=== PATIENT | female | born 1990 | race Caucasian/White ===

== ENCOUNTER 2016-05-29 10:43 | Emergency (ER) | payer SELFPAY ==
[2016-05-29] MEDS ORDERED: IBUPROFEN 800 MG TABLET PO ONE (10:50)
--- NOTE | 2016-05-29 10:50 | ER Document Report ---
ED Medical Screen (RME) - General Chief Complaint: Abscess Stated Complaint: ABSCESS Time seen by provider: 10:49 Mode of Arrival: Ambulatory Information source: Patient Notes: 26-year-old female presents to ED for abscess in left axilla. Denies fever or drainage to the site. No fevers noted. Last menstrual period 05/18/2016 I have greeted and performed a rapid initial assessment of this patient. A comprehensive ED assessment and evaluation of the patient, analysis of test results and completion of medical decision making process will be conducted by an additional ED providers. TRAVEL OUTSIDE OF THE [place] IN LAST 30 DAYS: No - Related Data Allergies/Adverse Reactions: tramadol [Tramadol] Adverse Reaction (Intermediate, Verified 05/29/16 10:50) Nausea Past Medical History Renal/ Medical History: Reports: Hx Kidney Stones, Hx Ovarian Cysts Psychiatric Medical History: Reports: Hx Bipolar Disorder, Hx Depression Past Surgical History: Reports: Hx Adenoidectomy, Hx Myringotomy, Hx Oral Surgery - plates in jaw, Hx Tonsillectomy - Immunizations Immunizations up to date: Yes Hx Diphtheria, Pertussis, Tetanus Vaccination: Yes - within 5 yrs Physical Exam - Vital signs Vitals: Temp Pulse Resp BP Pulse Ox 98.5 F 80 16 111/74 98 05/29/16 10:49 05/29/16 10:49 05/29/16 10:49 05/29/16 10:49 05/29/16 10:49 Course - Vital Signs Vital signs: Temp Pulse Resp BP Pulse Ox 98.2 F 80 16 113/68 98 05/29/16 12:51 05/29/16 12:51 05/29/16 12:51 05/29/16 12:51 05/29/16 12:57 Doctor's Discharge - Discharge Clinical Impression: Folliculitis Condition: Stable Disposition: HOME, SELF-CARE Instructions: Bactroban Ointment ([facility]), Folliculitis ([facility]) Additional Instructions: *You have been treated for folliculitis *Apply bactroban twice a day *Warm packs to the area *Monitor the site for signs of increasing infection such as increasing pain, redness, swelling, warmth *[facility] for [facility]heck *Return to ED for signs of increasing infection, worsening condition, changes, needs
[2016-05-29] MEDS ORDERED: MUPIROCIN CALCIUM 2% CREAM 15 GM TP ONE (12:46)
--- NOTE | 2016-05-29 12:47 | ER Document Report ---
HPI - HPI Patient complains to provider of: lump under left arm Onset: Other - 3 days Onset/Duration: Persistent Quality of pain: Achy Severity: Moderate Pain Level: 3 Context: Patient presents to the emergency department with complaints of lump under her left arm for the past 3 days. Denies history of MRSA. Patient also gives report of feeling short of breath when she goes up stairs but reports this been going on for over a month and only wrote it down because her fianc wanted her checked out for everything. She reports she is not here because of shortness of breath and does not want to be evaluated for this. She would like to have the lump under her arm evaluated. Patient denies fever vomiting diarrhea. Patient does shave under her arms. Associated Symptoms: None Exacerbated by: Denies Relieved by: Denies Similar symptoms previously: No Recently seen / treated by doctor: No - REPRODUCTIVE Reproductive: DENIES: : - DERM Skin Color: Normal Past Medical History - General Information source: Patient - Social History Smoking Status: Current Every Day Smoker Cigarette use (# per day): Yes - 1/2 ppd Chew tobacco use (# tins/day): No Frequency of alcohol use: Occasional Drug Abuse: None Occupation: none Family History: None, Reviewed & Not Pertinent Patient has suicidal ideation: No Patient has homicidal ideation: No Renal/ Medical History: Reports: Hx Kidney Stones, Hx Ovarian Cysts. Denies: Hx Peritoneal Dialysis Psychiatric Medical History: Reports: Hx Bipolar Disorder, Hx Depression Past Surgical History: Reports: Hx Adenoidectomy, Hx Myringotomy, Hx Oral Surgery - plates in jaw, Hx Tonsillectomy - Immunizations Immunizations up to date: Yes Hx Diphtheria, Pertussis, Tetanus Vaccination: Yes - within 5 yrs Vertical Provider Document - CONSTITUTIONAL Agree With Documented VS: Yes Exam Limitations: No Limitations General Appearance: WD/WN, No Apparent Distress - nontoxic looking - INFECTION CONTROL TRAVEL OUTSIDE OF THE [place] IN LAST 30 DAYS: No - HEENT HEENT: Atraumatic, Normocephalic - NECK Neck: Normal Inspection, Supple. negative: Lymphadenopathy-Left, Lymphadenopathy-Right - RESPIRATORY Respiratory: Breath Sounds Normal, No Respiratory Distress, Chest Non-Tender. negative: Rhonchi, Wheezing O2 Sat by Pulse Oximetry: 98 - CARDIOVASCULAR Cardiovascular: Regular Rate, Regular Rhythm - GI/ABDOMEN Gastrointestinal: Abdomen Soft, Abdomen Non-Tender - MUSCULOSKELETAL/EXTREMETIES Musculoskeletal/Extremeties: MEHRDAD, FROM, Tender - c/o tender left axillae, small lump noted under her left axilla approximately 1 cm around no pustule no induration no fluctuance- - NEURO Level of Consciousness: Awake, Alert, Appropriate Motor/Sensory: No Motor Deficit - DERM Integumentary: Warm, Dry Course - Re-evaluation Re-evalutation: 05/29/16 12:56 patient was instructed on care of area, bactroban and warm packs. Also instructed to return to emergency department for signs or symptoms of abscess or increasing erythema. She verbalized understanding. - Vital Signs Vital signs: Temp Pulse Resp BP Pulse Ox 98.5 F 80 16 111/74 98 05/29/16 10:49 05/29/16 10:49 05/29/16 10:49 05/29/16 10:49 05/29/16 10:49 Discharge - Discharge Clinical Impression: Folliculitis Condition: Stable Disposition: HOME, SELF-CARE Instructions: Bactroban Ointment ([facility]), Folliculitis ([facility]) Additional Instructions: *You have been treated for folliculitis *Apply bactroban twice a day *Warm packs to the area *Monitor the site for signs of increasing infection such as increasing pain, redness, swelling, warmth *[facility] for recheck *Return to ED for signs of increasing infection, worsening condition, changes, needs
[2016-05-29 13:53] VITALS: BP 113/68
== END 2016-05-29 13:00 | disposition home or self-care (01) ==
LOC: ER 10:43
DX: L73.9 Follicular disorder, unspecified (principal); F17.210 Nicotine dependence, cigarettes, uncomplicated
CPT/HCPCS: 99283; J3490

== ENCOUNTER 2016-07-11 18:44 | Emergency (ER) | payer SELFPAY ==
--- NOTE | 2016-07-11 19:12 | ER Document Report ---
ED Medical Screen (RME) - General Stated Complaint: RIGHT HAND SWELLING Notes: 26 yo female c/o right hand swelling x 3 days. 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 pt has hx/o boxer's fracture in same hane 1 yr ago. denies new trauma. admits to heavy lifting. also c/o rash to right forearm. no itch, slight stinging. rash started after being scratched by thorns TRAVEL OUTSIDE OF THE [place] IN LAST 30 DAYS: No - Related Data Allergies/Adverse Reactions: tramadol [Tramadol] Adverse Reaction (Intermediate, Verified 05/29/16 10:50) Nausea Past Medical History Renal/ Medical History: Reports: Hx Kidney Stones, Hx Ovarian Cysts. Denies: Hx Peritoneal Dialysis Psychiatric Medical History: Reports: Hx Bipolar Disorder, Hx Depression Past Surgical History: Reports: Hx Adenoidectomy, Hx Myringotomy, Hx Oral Surgery - plates in jaw, Hx Tonsillectomy - Immunizations Immunizations up to date: Yes Hx Diphtheria, Pertussis, Tetanus Vaccination: Yes - within 5 yrs
--- NOTE | 2016-07-11 23:46 | ER Document Report ---
ED General - General Time seen by provider: 23:40 Mode of Arrival: Ambulatory Information source: Patient TRAVEL OUTSIDE OF THE [place] IN LAST 30 DAYS: No - HPI Onset: Other - see HPI - General Chief Complaint: Hand Pain Stated Complaint: RIGHT HAND SWELLING Notes: Recent injury to her right hand. Patient states that the only thing she has done differently was that she has been working more. 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 Patient states she does not have insurance or primary care physician. Patient states her pain has been occurring for the past week. Patient states that she has some swelling to her right hand. Patient is allergic to tramadol. (SHERLY MUNGUIA) - Related Data Allergies/Adverse Reactions: tramadol [Tramadol] Adverse Reaction (Intermediate, Verified 07/11/16 19:12) Nausea Past Medical History - Social History Smoking Status: Current Every Day Smoker Chew tobacco use (# tins/day): No Frequency of alcohol use: None Drug Abuse: None Family History: None Patient has suicidal ideation: No Patient has homicidal ideation: No Renal/ Medical History: Reports: Hx Kidney Stones, Hx Ovarian Cysts Psychiatric Medical History: Reports: Hx Bipolar Disorder, Hx Depression Past Surgical History: Reports: Hx Adenoidectomy, Hx Myringotomy, Hx Oral Surgery - plates in jaw, Hx Tonsillectomy - Immunizations Immunizations up to date: Yes Hx Diphtheria, Pertussis, Tetanus Vaccination: Yes - within 5 yrs Review of Systems - Review of Systems Constitutional: No symptoms reported EENT: No symptoms reported Cardiovascular: No symptoms reported Respiratory: No symptoms reported Gastrointestinal: No symptoms reported Genitourinary: No symptoms reported Female Genitourinary: No symptoms reported Musculoskeletal: See HPI Skin: No symptoms reported Hematologic/Lymphatic: No symptoms reported Neurological/Psychological: No symptoms reported -: Yes All other systems reviewed and negative Physical Exam - Vital signs Interpretation: Normal - General General appearance: Appears well, Alert In distress: Mild - HEENT Head: Normocephalic, Atraumatic Eyes: Normal Pupils: PERRL Mucous membranes: Moist - Respiratory Respiratory status: No respiratory distress Chest status: Nontender Breath sounds: Normal Chest palpation: Normal - Cardiovascular Rhythm: Regular Heart sounds: Normal auscultation Murmur: No - Abdominal Inspection: Normal Distension: No distension Bowel sounds: Normal Tenderness: Nontender Organomegaly: No organomegaly - Back Back: Normal, Nontender - Extremities General upper extremity: Normal inspection, Normal ROM, Normal strength General lower extremity: Normal inspection, Normal ROM, Normal strength - Neurological Neuro grossly intact: Yes Cognition: Normal Orientation: AAOx4 [place] Coma Scale Eye Opening: Spontaneous [place] Coma Scale Verbal: Oriented [place] Coma Scale Motor: Obeys Commands [place] Coma Scale Total: 15 Speech: Normal - Psychological Associated symptoms: Normal affect, Normal mood - Skin Skin Temperature: Warm Skin Moisture: Dry Discharge - Discharge Clinical Impression: Right hand pain, narcotic seeking behavior Condition: Stable Disposition: HOME, SELF-CARE Additional Instructions: hand pain Your injury is a sprain. A sprain results from stretching or tearing of the ligaments, usually from a twisting injury. The ligaments will require time and protection in order to heal properly. Many sprains are quite disabling and should be taken seriously. The usual initial treatment of sprains is cold packs, elevation, and rest of the injured area. Your physician has assessed the seriousness of your ligament injury, and has outlined a treatment plan. Understand that this treatment may change, depending on how you progress. If a re-examination was recommended, it is important that you follow up as instructed. Call the doctor any time if there is severe pain, numbness, or loss of function in the injured area. Forms: Return to Work Referrals: [facility] [Provider Group] - Follow up in 3-5 days (Call for an appointment to be seen in 3-4 days) Scribe Documentation - Scribe Written by Scribe:: Sherly Munguia 07/11/16 00:15 acting as scribe for :: Jossue
== END 2016-07-11 23:55 | disposition home or self-care (01) ==
LOC: ER 18:44
DX: M79.641 Pain in right hand (principal); Z76.5 Malingerer [conscious simulation]; F17.200 Nicotine dependence, unspecified, uncomplicated
CPT/HCPCS: 99283

== ENCOUNTER 2016-11-26 19:20 | Emergency (ER) | payer SELFPAY ==
[2016-11-26 19:52] VITALS: BP 114/75
--- NOTE | 2016-11-26 21:08 | RADIOLOGY REPORT (SQ) ---
EXAM DESCRIPTION: HAND RIGHT 3 VIEWS COMPLETED DATE/TIME: 11/26/2016 8:03 pm REASON FOR STUDY: Pain s/p injury COMPARISON: None. EXAM PARAMETERS: NUMBER OF VIEWS: Three views. TECHNIQUE: AP, lateral and oblique radiographic images acquired of the right hand. LIMITATIONS: None. FINDINGS: MINERALIZATION: Normal. BONES: No acute fracture or dislocation. No worrisome bone lesions. Chronic deformity of the 5th me tacarpal. JOINTS: No effusions. SOFT TISSUES: No soft tissue swelling. No foreign body. OTHER: No other significant finding. IMPRESSION: No acute fracture. TECHNICAL DOCUMENTATION: JOB ID: [id number] [employer]- All Rights Reserved
--- NOTE | 2016-11-26 21:22 | ER Document Report ---
HPI - HPI Patient complains to provider of: Right hand pain Pain Level: 2 Context: Patient is a 26-year-old female that comes emergency department for chief complaint of right hand pain and swelling with bruising over the top of her hand. She admits that she became angry and she punched a wall, this happened 3 days ago, she states swelling was actually much worse and has started to significantly improve but she is worried she might have broken her hands. She admits that she previously punched something and broke her hand in the past. She denies any other injuries or areas of pain. - REPRODUCTIVE Reproductive: DENIES: : - DERM Skin Color: Normal, [place] Past Medical History - General Information source: Patient - Social History Smoking Status: Current Every Day Smoker Chew tobacco use (# tins/day): No Frequency of alcohol use: None Drug Abuse: Marijuana Lives with: Family Family History: None Renal/ Medical History: Reports: Hx Kidney Stones, Hx Ovarian Cysts. Denies: Hx Peritoneal Dialysis Psychiatric Medical History: Reports: Hx Bipolar Disorder, Hx Depression Surgical Hx: Negative Past Surgical History: Reports: Hx Adenoidectomy, Hx Myringotomy, Hx Oral Surgery - plates in jaw, Hx Tonsillectomy - Immunizations Immunizations up to date: Yes Hx Diphtheria, Pertussis, Tetanus Vaccination: Yes - within 5 yrs Vertical Provider Document - CONSTITUTIONAL General Appearance: WD/WN, No Apparent Distress - INFECTION CONTROL TRAVEL OUTSIDE OF THE [place] IN LAST 30 DAYS: No - HEENT HEENT: Atraumatic, Normocephalic - NECK Neck: Normal Inspection - RESPIRATORY Respiratory: Breath Sounds Normal, No Respiratory Distress O2 Sat by Pulse Oximetry: 100 - CARDIOVASCULAR Cardiovascular: Regular Rate, Regular Rhythm - GI/ABDOMEN Gastrointestinal: Abdomen Soft, Abdomen Non-Tender - MUSCULOSKELETAL/EXTREMETIES Musculoskeletal/Extremeties: MAEW, FROM, Tender - There is ecchymosis over the third and fourth MCP joints of the dorsal right hand, normal range of motion of the hand, normal capillary refill and sensation, normal wrist range of motion, no snuffbox tenderness, normal upper extremity exam otherwise - NEURO Motor/Sensory: No Motor Deficit, No Sensory Deficit - DERM Integumentary: Warm, Dry, No Rash Course - Re-evaluation Re-evalutation: X-ray shows old fracture but no new abnormality. Examination does not show any concerning abnormalities including no snuffbox tenderness. Consistent with soft tissue injury. I did discuss her anger issues, she denies SI or HI, she states that she realizes that she needs a better outlook and she actually plans on getting a punching bag to work through times when she is very angry. Boyfriend at bedside is in agreement. - Vital Signs Vital signs: Temp Pulse Resp BP Pulse Ox 98.7 F 90 16 114/75 100 11/26/16 19:35 11/26/16 19:35 11/26/16 19:35 11/26/16 19:35 11/26/16 19:35 Discharge - Discharge Clinical Impression: Swelling of right hand Injury of right hand Qualifiers: Encounter type: initial encounter Qualified Code(s): S69.91XA - Unspecified injury of right wrist, hand and finger(s), initial encounter Condition: Stable Disposition: HOME, SELF-CARE Additional Instructions: X-ray shows old healed fracture but no new concerning findings. Ice the hand 4 times daily for 15 minutes, take the anti-inflammatory, rest the hand. Follow up with Primary Care. Return to the ED for any concerning symptoms. Prescriptions: Naproxen 500 mg PO BID #20 tablet Forms: Return to Work
== END 2016-11-26 21:26 | disposition home or self-care (01) ==
LOC: ER 19:20
DX: S69.91XA Unspecified injury of right wrist, hand and finger(s), initial encounter (principal); F17.210 Nicotine dependence, cigarettes, uncomplicated; F31.9 Bipolar disorder, unspecified; X83.8XXA Intentional self-harm by other specified means, initial encounter; Y92.9 Unspecified place or not applicable; Z87.442 Personal history of urinary calculi
CPT/HCPCS: 99283

== ENCOUNTER 2017-01-11 20:18 | Emergency (ER) | payer SELFPAY ==
[2017-01-11] MEDS ORDERED: DEXAMETHASONE SOD PHOS INJ 10 MG/1 ML VIAL IM ONE (22:15)
[2017-01-11] MEDS ORDERED: ALBUTEROL SULFATE HFA (90 MCG/PUFF) 8 GM MDI (1 MDI/ER DISP) IH PRN (22:15)
--- NOTE | 2017-01-11 22:20 | ER Document Report ---
ED General - General Chief Complaint: Ear Pain Stated Complaint: RIGHT EAR PAIN Time Seen by Provider: 01/11/17 22:01 Notes: Patient is a 26-year-old female presents with complaint of ear pain. She says she has pain in her right ear. She says she also has some nasal congestion. She had ear tubes when she was younger. She denies any fevers. No vomiting. No cough. She has no other complaints at this time. TRAVEL OUTSIDE OF THE [place] IN LAST 30 DAYS: No - Related Data Allergies/Adverse Reactions: tramadol [Tramadol] Adverse Reaction (Intermediate, Verified 01/11/17 20:26) Nausea Home Medications: Current Home Medications No Home Medications 01/11/17 [History] Past Medical History - Social History Smoking Status: Unknown if Ever Smoked Frequency of alcohol use: None Drug Abuse: None Family History: None Renal/ Medical History: Reports: Hx Kidney Stones, Hx Ovarian Cysts. Denies: Hx Peritoneal Dialysis Psychiatric Medical History: Reports: Hx Bipolar Disorder, Hx Depression Past Surgical History: Reports: Hx Adenoidectomy, Hx Myringotomy, Hx Oral Surgery - plates in jaw, Hx Tonsillectomy - Immunizations Immunizations up to date: Yes Hx Diphtheria, Pertussis, Tetanus Vaccination: Yes - within 5 yrs Review of Systems - Review of Systems Notes: My Normal Review Basic REVIEW OF SYSTEMS: CONSTITUTIONAL : Denies fever, chills, or sweats. Denies recent illness. EENT: Ear pain. Is a congestion CARDIOVASCULAR: Denies chest pain. RESPIRATORY: Denies cough, cold, or chest congestion. Denies shortness of breath, difficulty breathing, or wheezing. GASTROINTESTINAL: Denies abdominal pain. Denies nausea, vomiting, or diarrhea. Denies constipation. Last BM: MUSCULOSKELETAL: Denies neck or back pain or joint pain or swelling. SKIN: Denies rash or skin lesions. NEUROLOGICAL: Denies altered mental status or loss of consciousness. Denies headache. Denies weakness or paralysis or loss of use of either side. Denies problems with gait or speech. Denies sensory or motor loss. ALL OTHER SYSTEMS REVIEWED AND NEGATIVE. Physical Exam - Vital signs Vitals: Temp Pulse Resp BP Pulse Ox 97.9 F 66 16 111/69 98 01/11/17 20:29 01/11/17 20:29 01/11/17 20:29 01/11/17 20:29 01/11/17 20:29 - Notes Notes: General Appearance: Well nourished, alert, cooperative, no acute distress, no obvious discomfort. Appearing. Vitals: reviewed, See vital signs table. Head: no swelling or tenderness to the head Eyes: PERRL, EOMI, Conjuctiva clear Mouth: No decreasd moisture Throat: No tonsillar inflammation, No airway obstruction, No lymphadenopathy Ears: Normal-appearing tympanic membrane the left. Patient does have a lot of cerumen impaction right ear. I can partially visualize the tympanic membrane on the right there is normal-appearing. There is no redness or swelling or erythema of either ear canal. Neck: Supple, no neck swelling. Lungs: No wheezing, No rales, No rhonci, No accessory muscle use, good air exchange bilaterally. Heart: Normal rate, Regular rythm, No murmur, no rub Skin: warm, dry, appropriate color, no rash Neuro: speech clear, oriented x 3, normal affect, responds appropriately to questions. Course - Re-evaluation Re-evalutation: 01/12/17 07:15 Patient will be discharged home. If the patient most likely has upper respiratory infection is causing some pressure behind her right ear. I will give her a dose of Decadron. Encouraged to take [id number] nasal decongestants. Encouraged her return to ER if she has fevers, worsening pain, any facial swelling, or if she feels unwell. Patient agrees with plan will be discharged home. Dictation of this chart was performed using voice recognition software; therefore, there may be some unintended grammatical errors. - Vital Signs Vital signs: Temp Pulse Resp BP Pulse Ox 98.3 F 64 18 110/72 99 01/11/17 22:25 01/11/17 22:25 01/11/17 22:25 01/11/17 22:25 01/11/17 22:25 Discharge - Discharge Clinical Impression: Sinus congestion Ear pain Qualifiers: Laterality: right Qualified Code(s): H92.01 - Otalgia, right ear Dyspnea Qualifiers: Dyspnea type: unspecified Qualified Code(s): R06.00 - Dyspnea, unspecified Condition: Good Disposition: HOME, SELF-CARE Additional Instructions: Please take over the counter psuedophed or phenylephrine to help with your congestion. Please return to the ER immediately if you have difficulty breathing, fevers, vomiting, or feel unwell. Please follow-up with primary care doctor in 3-4 days for reevaluation. Please continue the good work with quitting smoking. Forms: Return to Work
[2017-01-11 22:33] VITALS: BP 110/72
== END 2017-01-11 22:25 | disposition home or self-care (01) ==
LOC: ER 20:18
DX: R09.81 Nasal congestion (principal); H61.21 Impacted cerumen, right ear; H92.01 Otalgia, right ear; R06.00 Dyspnea, unspecified
CPT/HCPCS: 99282; 96372; J1100; J3490

== ENCOUNTER 2017-01-15 19:26 | Emergency (ER) | payer SELFPAY ==
[2017-01-15] MEDS ORDERED: DOCUSATE SODIUM 100 MG CAPSULE RT_EAR ONE (20:21)
--- NOTE | 2017-01-15 20:28 | ER Document Report ---
ED ENT - General Chief Complaint: Ear Pain Stated Complaint: EAR ACHE Time Seen by Provider: 01/15/17 19:54 Mode of Arrival: Ambulatory Information source: Patient Notes: 26-year-old presents to ED for complaint of right ear pain and feeling clogged. She states she was here couple days ago and they sent her home on decongestants which did not help her pain and feelings in her ear. TRAVEL OUTSIDE OF THE [place] IN LAST 30 DAYS: No - HPI Patient complains to provider of: Ear problem Onset: Last week Onset/Duration: Persistent Quality of pain: Achy, Sharp, Other Severity: Moderate Pain Level: 3 Context: Recent Illness Location of pain: Ears, Nose Associated symptoms: Ear pain, Runny nose, Sinus drainage Similar symptoms previously: Yes Recently seen / treated by doctor: Yes - Related Data Allergies/Adverse Reactions: tramadol [Tramadol] Adverse Reaction (Intermediate, Verified 01/15/17 19:46) Nausea Past Medical History - General Information source: Patient - Social History Smoking Status: Current Every Day Smoker Cigarette use (# per day): Yes - Half a pack a day Chew tobacco use (# tins/day): No Smoking Education Provided: Yes - Less than 2 minute Frequency of alcohol use: Occasional Drug Abuse: Marijuana Occupation: No work Lives with: Spouse/Significant other Family History: Arthritis, CAD, COPD, CVA, Hyperlipidemia, Hypertension, Malignancy, Thyroid Disfunction Patient has suicidal ideation: No Patient has homicidal ideation: No - Past Medical History Cardiac Medical History: Reports: None Pulmonary Medical History: Reports: None EENT Medical History: Reports: None Neurological Medical History: Reports: None Endocrine Medical History: Reports: None Renal/ Medical History: Reports: Hx Kidney Stones, Hx Ovarian Cysts Malignancy Medical History: Reports: None GI Medical History: Reports: None Musculoskeltal Medical History: Reports None Skin Medical History: Reports None Psychiatric Medical History: Reports: Hx Bipolar Disorder, Hx Depression Traumatic Medical History: Reports: None Infectious Medical History: Reports: None Past Surgical History: Reports: Hx Adenoidectomy, Hx Myringotomy, Hx Oral Surgery - plates in jaw, Hx Tonsillectomy - Immunizations Immunizations up to date: Yes Hx Diphtheria, Pertussis, Tetanus Vaccination: Yes - within 5 yrs Review of Systems - Review of Systems Constitutional: Recent illness EENT: Ear pain, Nose discharge, Sinus pressure, Sinus discharge Cardiovascular: No symptoms reported Respiratory: No symptoms reported Gastrointestinal: No symptoms reported Genitourinary: No symptoms reported Female Genitourinary: No symptoms reported Musculoskeletal: No symptoms reported Skin: No symptoms reported Hematologic/Lymphatic: No symptoms reported Neurological/Psychological: No symptoms reported -: Yes All other systems reviewed and negative Physical Exam - Vital signs Vitals: Temp Pulse Resp BP Pulse Ox 98.8 F 67 18 124/90 H 98 01/15/17 19:48 01/15/17 19:48 01/15/17 19:48 01/15/17 19:48 01/15/17 19:48 Interpretation: Normal - General General appearance: Appears well, Alert - HEENT Head: Normocephalic, Atraumatic Eyes: Normal Pupils: PERRL Ears: Normal External canal: Cerumen impaction Tympanic membrane: Normal Sinus: Normal Nasal: Purulent discharge, Swelling Mouth/Lips: Normal Mucous membranes: Normal Pharynx: Normal Neck: Normal - Respiratory Respiratory status: No respiratory distress Chest status: Nontender Breath sounds: Normal Chest palpation: Normal - Cardiovascular Rhythm: Regular Heart sounds: Normal auscultation Murmur: No - Abdominal Inspection: Normal Distension: No distension Bowel sounds: Normal Tenderness: Nontender Organomegaly: No organomegaly - Back Back: Normal, Nontender - Extremities General upper extremity: Normal inspection, Nontender, Normal color, Normal ROM , Normal temperature General lower extremity: Normal inspection, Nontender, Normal color, Normal ROM , Normal temperature, Normal weight bearing. No: Agus's sign - Neurological Neuro grossly intact: Yes Cognition: Normal Orientation: AAOx4 Amar[place] Coma Scale Eye Opening: Spontaneous [place] Coma Scale Verbal: Oriented [place] Coma Scale Motor: Obeys Commands [place] Coma Scale Total: 15 Speech: Normal Motor strength normal: LUE, RUE, LLE, RLE Sensory: Normal - Psychological Associated symptoms: Normal affect, Normal mood - Skin Skin Temperature: Warm Skin Moisture: Dry Skin Color: Normal Course - Vital Signs Vital signs: Temp Pulse Resp BP Pulse Ox 98.8 F 67 18 124/90 H 98 01/15/17 19:48 01/15/17 19:48 01/15/17 19:48 01/15/17 19:48 01/15/17 19:48 Discharge - Discharge Clinical Impression: Ear pain Qualifiers: Laterality: right Qualified Code(s): H92.01 - Otalgia, right ear Cerumen impaction Qualifiers: Laterality: right Qualified Code(s): H61.21 - Impacted cerumen, right ear URI (upper respiratory infection) Qualifiers: URI type: unspecified URI Qualified Code(s): J06.9 - Acute upper respiratory infection, unspecified Condition: Stable Disposition: HOME, SELF-CARE Instructions: Family Physicians / Practices Additional Instructions: UPPER RESPIRATORY ILLNESS: You have a viral infection of the respiratory passages -- a "cold." This common infection causes nasal congestion, drainage, and often sore throat and cough. It is highly contagious. The disease usually lasts about 10 to 14 days. There is no "cure" for the viral infection -- it must run its course. If there is a complication, such as bacterial infection in the nose, sinuses, middle ear, or bronchial tubes, antibiotics may be required. The antibiotics won't affect the virus. Drink plenty of fluids. A humidifier may help. An expectorant medication or decongestant may make you more comfortable. Use acetaminophen or ibuprofen for fever or aches. See the doctor if fever persists over two days, if there is any significant worsening of your symptoms, or if you simply fail to improve as expected. Cerumen Impaction The physician found a severe buildup of earwax in your ear canal, called a cerumen impaction. A large plug of wax can cause earache, decreased hearing, or itching. It can even lead to infection of the outer ear. An impaction of earwax can be removed by the physician using special instruments, or can be irrigated out using a stream of water (often a little of both is required). Some less severe impactions are removed using ear drops that dissolve wax. In the future, don't get soap in your ear canal. Soap doesn't remove wax - - it simply hardens it in place. Don't use cotton swabs. These just push the wax into large clumps, where it doesn't flow out normally. Dust and smoke also contribute to wax buildup. Earwax softening drops are available without prescription, and can be used periodically. Contact the doctor if you develop decreased hearing, earache, drainage from the ear, or severe headache. DECONGESTANT MEDICATION: A decongestant medicine has been suggested. Often this medicine is combined in the same tablet with an antihistamine or expectorant. This type of medicine is helpful in treating a bad cold or sinus condition, as well as in treatment of the nasal congestion of hay fever. It is not of much benefit for lung infections. Decongestant medicines are related to stimulants. They can cause an increase in blood pressure and heart rate. Persons with heart disease and high blood pressure should not take decongestants without discussing this with the physician. If you develop palpitations, chest pain, headache, or tremors, stop the medicine and consult your physician. COUGH-SUPPRESSANT & EXPECTORANT MEDICATION: You are to use a cough medication as needed for relief of symptoms. This medicine is a combination of an expectorant (to make the mucous thinner and more easily "coughed up") and a cough suppressant (to reduce the frequency of coughing). The cough-suppressant medicine is related to narcotics. You may experience mild nausea and sleepiness. Some patients who are very sensitive to narcotics may have stomach pain from this medicine. Taking the medicine with food reduces these side effects. Do not drive or work with machinery until you know how this medicine affects you. The expectorant should have no side effects. Iodine-containing expectorants (such as organidin) should not be taken by persons with active thyroid disease unless approved by your doctor. Call the doctor if you develop shortness of breath, hives, rash, itching, lightheadedness, or severe nausea and vomiting. USE OF ACETAMINOPHEN (Tylenol): Acetaminophen may be taken for pain relief or fever control. It's much safer than aspirin, offering a wider range of "safe" dosages. It is safe during . Some brand names are Tylenol, Panadol, Datril, Anacin 3, Tempra, and Liquiprin. Acetaminophen can be repeated every four hours. The following are maximum recommended dosages: >89 pounds or adults 650 mg to 900 mg Acetaminophen can be repeated every four hours. Maximum dose not to exceed 4000 mg a day. SMOKING: If you smoke, you should stop smoking. The tar and chemicals in cigarette smoke are harmful. Smoking has been shown to cause: emphysema chronic bronchitis lung cancer mouth and throat cancer stomach and pancreas cancer premature aging defects In addition, smoking increases ear and lung infections in children of smokers. FOLLOW-UP CARE: If you have been referred to a physician for follow-up care, call the physician s office for an appointment as you were instructed or within the next two days. If you experience worsening or a significant change in your symptoms, notify the physician immediately or return to the Emergency Department at any time for re-evaluation. Forms: Elevated Blood Pressure, Smoking Cessation Education, Return to Work
[2017-01-15] MEDS ORDERED: IBUPROFEN 600 MG TABLET PO ONE (20:59)
[2017-01-15 21:04] VITALS: BP 113/82
== END 2017-01-15 21:06 | disposition home or self-care (01) ==
LOC: ER 19:26
DX: H61.21 Impacted cerumen, right ear (principal); J06.9 Acute upper respiratory infection, unspecified; H92.01 Otalgia, right ear; J34.89 Other specified disorders of nose and nasal sinuses; F17.210 Nicotine dependence, cigarettes, uncomplicated; Z71.6 Tobacco abuse counseling
CPT/HCPCS: 99283

== ENCOUNTER 2017-05-27 19:25 | Emergency (ER) | payer SELFPAY ==
--- NOTE | 2017-05-27 20:56 | RADIOLOGY REPORT (SQ) ---
EXAM DESCRIPTION: CHEST PA/LAT COMPLETED DATE/TIME: 05/27/2017 8:42 pm REASON FOR STUDY: cp COMPARISON: 01/31/2010. EXAM PARAMETERS: NUMBER OF VIEWS: two views TECHNIQUE: Digital Frontal and Lateral radiographic views of the chest acquired. RADIATION DOSE: NA LIMITATIONS: none FINDINGS: LUNGS AND PLEURA: No opacities, masses or pneumothorax. No pleural effusion. MEDIASTINUM AND HILAR STRUCTURES: No masses or contour abnormalities. HEART AND VASCULAR STRUCTURES: Heart normal size. No evidence for failure. BONES: No acute findings. HARDWARE: None in the chest. OTHER: No other significant finding. IMPRESSION: NO SIGNIFICANT RADIOGRAPHIC FINDING IN THE CHEST. TECHNICAL DOCUMENTATION: JOB ID: [id number] [employer]- All Rights Reserved
[2017-05-27 21:46] VITALS: BP 119/83
--- NOTE | 2017-05-27 21:48 | ER Document Report ---
HPI - HPI Patient complains to provider of: cough, congestion Pain Level: 2 Context: Patient is a 27-year-old female comes emergency department for chief complaint of cough, congestion, occasional sweats at night, difficulty sleeping because of cough, postnasal drainage, intermittent wheezing. She now has an inhaler, she has been urgent care twice, she finished a course of azithromycin, she finished a second course of azithromycin and is now finishing a course of prednisone, she has improved but symptoms continue to persist. She does smoke but has been forced to cut back. LMP current. No daily medications or past medical history reported otherwise. - REPRODUCTIVE LMP: now Reproductive: DENIES: : Past Medical History - General Information source: Patient - Social History Smoking Status: Current Every Day Smoker Smoking Education Provided: Yes - <3 min Frequency of alcohol use: None Drug Abuse: None Lives with: Family Family History: Arthritis, CAD, COPD, CVA, Hyperlipidemia, Hypertension, Malignancy, Thyroid Disfunction Renal/ Medical History: Reports: Hx Kidney Stones, Hx Ovarian Cysts. Denies: Hx Peritoneal Dialysis Psychiatric Medical History: Reports: Hx Bipolar Disorder, Hx Depression Past Surgical History: Reports: Hx Adenoidectomy, Hx Myringotomy, Hx Oral Surgery - plates in jaw, Hx Tonsillectomy - Immunizations Immunizations up to date: Yes Hx Diphtheria, Pertussis, Tetanus Vaccination: Yes - within 5 yrs Vertical Provider Document - CONSTITUTIONAL General Appearance: WD/WN, No Apparent Distress - INFECTION CONTROL TRAVEL OUTSIDE OF THE [place] IN LAST 30 DAYS: No - HEENT HEENT: Atraumatic, Normocephalic. negative: Normal ENT Exam - mild nasal congestion, mild pharyngeal erythema, otherwise normal ENT - NECK Neck: Normal Inspection - RESPIRATORY Respiratory: Breath Sounds Normal, No Respiratory Distress, Other - non productive cough O2 Sat by Pulse Oximetry: 97 - CARDIOVASCULAR Cardiovascular: Regular Rate, Regular Rhythm - GI/ABDOMEN Gastrointestinal: Abdomen Soft, Abdomen Non-Tender - BACK Back: Normal Inspection - NEURO Level of Consciousness: Awake, Alert, Appropriate - DERM Integumentary: Warm, Dry, No Rash Course - Re-evaluation Re-evalutation: Evaluation tonight with no acute findings. Clear lungs, no hypoxia. Chest x- ray unremarkable. Patient with intermittent cough, congestion, otherwise she is well-appearing. Discussed smoking cessation. Will provide symptom management for patient as she completes her final symptoms of her suspected bronchitis, discussed follow-up, return precautions, patient states understanding and agreement. - Vital Signs Vital signs: Temp Pulse Resp BP Pulse Ox 98.1 F 70 20 115/68 97 05/27/17 19:31 05/27/17 19:31 05/27/17 19:31 05/27/17 19:31 05/27/17 19:31 Discharge - Discharge Clinical Impression: Upper respiratory infection Qualifiers: URI type: unspecified URI Qualified Code(s): J06.9 - Acute upper respiratory infection, unspecified Condition: Stable Disposition: HOME, SELF-CARE Additional Instructions: Your chest x-ray does not show any concerning abnormalities. Your symptoms and examination are consistent with lingering symptoms from bronchitis. Finish prednisone, take [id number] generic Mucinex, antihistamines can help. Take Tessalon during the day if needed for cough, take syrup if needed at night for cough (only if needed). Follow-up with primary care. Stop smoking. Return for any concerning or worsening symptoms including difficulty breathing, fever of 100.4 greater, or any other concerning symptoms. Prescriptions: Hydrocodone Bit/Homatropine [Hycodan Syrup 5-1.5 mg/5 ml Ud Cup] 5 ml PO Q4HP PRN #120 ml PRN Reason: Benzonatate [Tessalon Perle 100 mg Capsule] 100 mg PO Q8HP PRN #40 cap PRN Reason: Forms: Smoking Cessation Education
--- NOTE | 2017-05-27 23:36 | EKG REPORT ---
SEVERITY:- BORDERLINE ECG - SINUS RHYTHM PROBABLE LEFT ATRIAL ABNORMALITY INFERIOR Q WAVES, PROBABLY NORMAL VARIATION : Confirmed by: Jose Herzog 27-May-2017 23:35:41
== END 2017-05-27 21:54 | disposition home or self-care (01) ==
LOC: ER 19:25
DX: J06.9 Acute upper respiratory infection, unspecified (principal); F17.200 Nicotine dependence, unspecified, uncomplicated; Z87.442 Personal history of urinary calculi
CPT/HCPCS: 71046; 93005; 93010; 99285

== ENCOUNTER 2017-07-04 15:20 | Emergency (ER) | payer SELFPAY ==
--- NOTE | 2017-07-04 15:42 | ER Document Report ---
ED General - General Chief Complaint: Vaginal Pain Stated Complaint: LOWER ABDOMINAL PAIN Time Seen by Provider: 07/04/17 15:40 Mode of Arrival: Ambulatory Information source: Patient Notes: Patient is a 27 year old female with PMHx including endometriosis and "pelvic congestion" that presents with c/o lower right pelvic pain that has been intermittent over the past 2 months. She states that occasionally there will be a "bulge" that goes away on its own. She endorses associated dysparunia and after menstrual cycles. Denies concern for or STDs. Denies fever, chills, n/v/d, abdominal pain, dysuria, hematuria, abnormal vaginal bleeding, vaginal discharge. She has not taken any medications for this. Endorses history of heavy menstrual cycles but otherwise normal in nature. TRAVEL OUTSIDE OF THE [place] IN LAST 30 DAYS: No - Related Data Allergies/Adverse Reactions: tramadol [Tramadol] Adverse Reaction (Intermediate, Verified 07/04/17 15:22) Nausea Past Medical History - General Information source: Patient - Social History Smoking Status: Unknown if Ever Smoked Family History: Arthritis, CAD, COPD, CVA, Hyperlipidemia, Hypertension, Malignancy, Thyroid Disfunction Renal/ Medical History: Reports: Hx Kidney Stones, Hx Ovarian Cysts. Denies: Hx Peritoneal Dialysis Psychiatric Medical History: Reports: Hx Bipolar Disorder, Hx Depression Past Surgical History: Reports: Hx Adenoidectomy, Hx Myringotomy, Hx Oral Surgery - plates in jaw, Hx Tonsillectomy - Immunizations Immunizations up to date: Yes Hx Diphtheria, Pertussis, Tetanus Vaccination: Yes - within 5 yrs Review of Systems - Review of Systems Constitutional: See HPI EENT: No symptoms reported Cardiovascular: No symptoms reported Respiratory: No symptoms reported Gastrointestinal: See HPI Genitourinary: See HPI Female Genitourinary: See HPI Musculoskeletal: No symptoms reported Skin: No symptoms reported Hematologic/Lymphatic: No symptoms reported Neurological/Psychological: No symptoms reported Physical Exam - Vital signs Vitals: Temp Pulse Resp BP Pulse Ox 98.6 F 77 16 119/72 99 07/04/17 15:24 07/04/17 15:24 07/04/17 15:24 07/04/17 15:24 07/04/17 15:24 - Notes Notes: PHYSICAL EXAM: CONSTITUTIONAL: Alert and oriented, well-appearing and in no acute distress. HENT: Normocephalic, atraumatic. Oropharynx clear without erythema, tonsilar exudate or malocclusion. Trachea midline. Uvula midline. Moist mucous membranes. EYES: Pupils equal round and reactive to light, EOM intact. Sclera anicteric, conjunctiva are normal. No entrapment. NECK: supple without lymphadenopathy. No midline tenderness or paraspinous muscle spasms. No step-offs or deformities. ROM intact. HEART: Regular rate and rhythm without murmurs. LUNGS: CTAB and equal. No wheezes, rales or rhonchi. GI: Normactive bowel sounds. Abdomen is soft, nontender, non-distended. No organomegaly. no CVAT. No rebound or guarding. Negative McBurney's point tenderness, negative Ramírez's sign. TTP in right inguinal canal without bulge or mass. SHOE FITTER: patient deferred EXTREMITIES: no bony tenderness, erythema, edema, ecchymosis or deformity. Normal range of motion, no pitting edema. No cyanosis. Cap Refill <3 seconds. NEURO: Cranial nerves grossly intact. Normal sensory/motor exams. PSYCH: Normal mood, normal affect. SKIN: Warm and dry. Normal turgor. No rashes or lesions noted. Course - Re-evaluation Re-evalutation: 07/04/17 15:42 Patient seen and examined. Hx of endometriosis, "pelvic congestion." Exam reveals TTP in inguinal canal without bulge, mass, or evidence of cellulitis/ abscess. DDx includes lymphadenopathy vs inguinal hernia (non-strangulated). Patient defers pelvic exam. Will obtain UA, US. 07/04/17 16:30 Reviewed urinalysis - 1+ WBC, trace bacteria, no hematuria, no RBC, neg nitrites , neg leuk est. Awaiting transvaginal US. 07/04/17 17:00 Patient notified nursing staff she did not want to wait for ultrasound. I discussed with her that she could experience worsening pain, worsening of condition, etc. She reports again she doesn't want to stay and she would follow- up with her OBGYN. I advised that if it is also inguinal hernia, she should follow-up with surgeon, also gave strict return precautions that if strangulated , she should return immediately for evaluation as this is a surgical emergency. She voiced agreement with plan. At this time, will discharge with return precautions and follow-up recommendations. Verbal discharge instructions given at the bedside and opportunity for questions given. Medication warnings reviewed. Patient is in agreement with this plan and has verbalized understanding of return precautions and the need for primary care follow-up in the next 24-72 hours. - Vital Signs Vital signs: Temp Pulse Resp BP Pulse Ox 98.6 F 77 16 119/72 99 07/04/17 15:24 07/04/17 15:24 07/04/17 15:24 07/04/17 15:24 07/04/17 15:24 Discharge - Discharge Clinical Impression: Pelvic pain, Lymphadenopathy, Inguinal hernia of right side without obstruction or gangrene Condition: Stable Disposition: HOME, SELF-CARE Instructions: Hernia ([facility]), Lymphadenopathy ([facility]) Additional Instructions: We discussed that your urine today was normal. The "bulge" you are feeling could be just swollen lymph nodes or a possible inguinal hernia. We discussed strict return precautions concerning if this were to get stuck out and not reduce on its own. If this happens, return immediately. However, if it does not, but continues to bother you, you can follow-up with a surgeon. Take medications as directed. FOLLOW-UP CARE: If you have been referred to a physician for follow-up care, call the physician s office for an appointment as you were instructed or within the next two days. If you experience worsening or a significant change in your symptoms, notify the physician immediately or return to the Emergency Department at any time for re-evaluation. Prescriptions: Naproxen [Naprosyn 250 mg Tablet] 500 mg PO BID #20 tablet
[2017-07-04 16:22] LABS: AMORPHOUS SEDIMENT,URINE TRACE /HPF; APPEARANCE,URINE CLOUDY; BILIRUBIN,URINE NEGATIVE (NEGATIVE); COLOR,URINE YELLOW; GLUCOSE, URINE NEGATIVE (NEGATIVE); KETONES,URINE NEGATIVE (NEGATIVE); LEUKOCYTE ESTERASE,URINE NEGATIVE (NEGATIVE); NITRITE,URINE NEGATIVE (NEGATIVE); PROTEIN,URINE NEGATIVE (NEGATIVE); URINE SPECIFIC GRAVITY 1.013; UROBILINOGEN,URINE NEGATIVE mg/dL (<2.0)
[2017-07-04 17:31] VITALS: BP 113/72
== END 2017-07-04 17:31 | disposition home or self-care (01) ==
LOC: ER 15:20
DX: K40.90 Unilateral inguinal hernia, without obstruction or gangrene, not specified as recurrent (principal); R59.1 Generalized enlarged lymph nodes; R10.2 Pelvic and perineal pain; R10.30 Lower abdominal pain, unspecified
CPT/HCPCS: 81001; 81025; 99284

== ENCOUNTER 2017-09-01 18:53 | Emergency (ER) | payer SELFPAY ==
[2017-09-01 19:05] VITALS: BP 115/79
== END 2017-09-01 20:10 | disposition left against medical advice (07) ==
LOC: ER 18:53
DX: Z53.21 Procedure and treatment not carried out due to patient leaving prior to being seen by health care provider (principal); M25.562 Pain in left knee

== ENCOUNTER 2017-09-09 16:19 | Emergency (ER) | payer SELFPAY ==
[2017-09-09 16:54] VITALS: BP 115/77
[2017-09-09] MEDS ORDERED: DIPH/PERTUSS(ACELL)/TETANUS VAC/PF 0.5 ML SYR (>=10YO) IM ONE (17:27)
--- NOTE | 2017-09-09 17:32 | ER Document Report ---
HPI - HPI Pain Level: 2 Notes: Patient is a 27-year-old female with no significant past medical history who presents to the ED complaining of a small laceration to her right lateral index finger when she was at work today by a utility blade. Patient is unsure of her last tetanus. Patient states that it has not been heavily bleeding. She still able to move her finger without active difficulties. She has no associated numbness or tingling. No other concerns or complaints at this time. Denies any headache, fever, URI, sore throat, chest pain, palpitations, syncope, cough , shortness of breath, wheeze, dyspnea, abdominal pain, nausea/vomiting/diarrhea , urinary retention, dysuria, hematuria, muscle paralysis/weakness, or rash. - ROS Systems Reviewed and Negative: Yes All other systems reviewed and negative - REPRODUCTIVE Reproductive: DENIES: : Past Medical History - Social History Smoking Status: Unknown if Ever Smoked Family History: Arthritis, CAD, COPD, CVA, Hyperlipidemia, Hypertension, Malignancy, Thyroid Disfunction Renal/ Medical History: Reports: Hx Kidney Stones, Hx Ovarian Cysts. Denies: Hx Peritoneal Dialysis Psychiatric Medical History: Reports: Hx Bipolar Disorder, Hx Depression Past Surgical History: Reports: Hx Adenoidectomy, Hx Myringotomy, Hx Oral Surgery - plates in jaw, Hx Tonsillectomy - Immunizations Immunizations up to date: Yes Hx Diphtheria, Pertussis, Tetanus Vaccination: Yes - within 5 yrs Vertical Provider Document - CONSTITUTIONAL Agree With Documented VS: Yes Notes: PHYSICAL EXAMINATION: GENERAL: Well-appearing, well-nourished and in no acute distress. LUNGS: Breath sounds clear to auscultation bilaterally and equal. No wheezes rales or rhonchi. HEART: Regular rate and rhythm without murmurs, rubs, gallops. Musculoskeletal: Rt index finger: FROM to passive/active. Strength 5+/5. N/V intact distal. Extremities: No cyanosis, clubbing, or edema b/l. Peripheral pulses 2+. Capillary refill less than 3 seconds. NEUROLOGICAL: Cranial nerves grossly intact. Normal speech, normal gait. Normal sensory, motor exams PSYCH: Normal mood, normal affect. SKIN: Rt index finger: There is a very superficial flap lac to the lateral index. The lac does not penetrate through all the skin layers. - INFECTION CONTROL TRAVEL OUTSIDE OF THE [place] IN LAST 30 DAYS: No Course - Re-evaluation Re-evalutation: 09/09/17 17:30 Patient is an afebrile, well-hydrated, 27-year-old female who presents to the ED with a laceration of the right index finger. Vitals are acceptable. PE is otherwise unremarkable for any neurovascular compromise, obvious tendon/ ligament rupture, obvious fracture/dislocation, infection. No labs or imaging warranted at this time based on H&P. Minimal wound debridement was performed and wound dressing was placed after thorough irrigation and cleansing. Tetanus was updated today. Conservative measures otherwise for symptoms. I will send her home with a prophylactic prescription for Keflex. Recheck with your PCM in 3-5 days. Return to the ED with any worsening/concerning symptoms otherwise as reviewed discharge. Patient is in agreement. - Vital Signs Vital signs: Temp Pulse Resp BP Pulse Ox 98.5 F 71 16 115/77 99 09/09/17 16:52 09/09/17 16:52 09/09/17 16:52 09/09/17 16:52 09/09/17 16:52 Discharge - Discharge Clinical Impression: Laceration of index finger Qualifiers: Encounter type: initial encounter Damage to nail status: without damage Foreign body presence: without foreign body Laterality: right Qualified Code(s) : S61.210A - Laceration without foreign body of right index finger without damage to nail, initial encounter Condition: Stable Disposition: HOME, SELF-CARE Instructions: Prophylactic Antibiotic ([facility]), Antibiotic Ointment Protection ( [facility]), Soap Cleansing ([facility]), Tetanus Immunization Given ([facility]) Additional Instructions: Keep the skin clean Wash with soap and water Tylenol/ibuprofen if needed Triple antibiotic ointment daily Keep finger wrapped until drainage stops Take medication as directed Monitor for any worsening symptoms Recheck with your PCM in 3-5 days Consider consult with orthopedics for ongoing/worsening symptoms Return to the ED with any worsening symptoms and/or development of fever, headache, chest pain, palpitations, syncope, shortness of breath, trouble breathing, abdominal pain, n/v/d, abscess, purulent discharge, red streaks, worsening swelling, or other worsening symptoms that are concerning to you. Prescriptions: Cephalexin Monohydrate [Keflex 500 mg Capsule] 500 mg PO BID #10 capsule Referrals: [facility] [Provider Group] - Follow up as needed
== END 2017-09-09 18:25 | disposition home or self-care (01) ==
LOC: ER 16:19
DX: S61.210A Laceration without foreign body of right index finger without damage to nail, initial encounter (principal); W26.0XXA Contact with knife, initial encounter; Y99.0 Civilian activity done for income or pay; Z23 Encounter for immunization
CPT/HCPCS: 90471; 90715; 99283

== ENCOUNTER 2017-11-11 06:55 | Emergency (ER) | payer SELFPAY ==
[2017-11-11] MEDS ORDERED: KETOROLAC TROMETHAMINE 60 MG/2 ML SDV IM ONE (07:41)
--- NOTE | 2017-11-11 07:43 | ER Document Report ---
ED GI/ - General Chief Complaint: Abdominal Pain Stated Complaint: BACK PAIN Time Seen by Provider: 11/11/17 07:27 Mode of Arrival: Ambulatory Information source: Patient Notes: Patient is a 27-year-old female who presents to the ER today for right flank pain that started 2 days ago and mild burning with urination. Patient admits to history of kidney stones. Patient admits to some nausea but no vomiting or diarrhea. Patient states that it does radiate somewhat into the right lower quadrant of the abdomen. She denies any fevers or chills. She denies any injury. TRAVEL OUTSIDE OF THE [place] IN LAST 30 DAYS: No - Related Data Allergies/Adverse Reactions: tramadol [Tramadol] Adverse Reaction (Intermediate, Verified 09/09/17 16:44) Nausea Past Medical History - General Information source: Patient - Social History Smoking Status: Unknown if Ever Smoked Family History: Arthritis, CAD, COPD, CVA, Hyperlipidemia, Hypertension, Malignancy, Thyroid Disfunction Patient has suicidal ideation: No Patient has homicidal ideation: No Renal/ Medical History: Reports: Hx Kidney Stones, Hx Ovarian Cysts. Denies: Hx Peritoneal Dialysis Psychiatric Medical History: Reports: Hx Bipolar Disorder, Hx Depression Past Surgical History: Reports: Hx Adenoidectomy, Hx Myringotomy, Hx Oral Surgery - plates in jaw, Hx Tonsillectomy - Immunizations Immunizations up to date: Yes Hx Diphtheria, Pertussis, Tetanus Vaccination: Yes - within 5 yrs Review of Systems - Review of Systems Constitutional: No symptoms reported EENT: No symptoms reported Cardiovascular: No symptoms reported Respiratory: No symptoms reported Gastrointestinal: See HPI Genitourinary: See HPI Female Genitourinary: No symptoms reported Musculoskeletal: No symptoms reported Skin: No symptoms reported Hematologic/Lymphatic: No symptoms reported Neurological/Psychological: No symptoms reported Physical Exam - Vital signs Vitals: Temp Pulse Resp BP Pulse Ox 98.4 F 78 16 115/76 99 11/11/17 06:58 11/11/17 06:58 11/11/17 06:58 11/11/17 06:58 11/11/17 06:58 - Notes Notes: PHYSICAL EXAMINATION: GENERAL: Uncomfortable, but in no acute distress. HEAD: Atraumatic, normocephalic. EYES: Pupils equal round and reactive to light, extraocular movements intact, sclera anicteric, conjunctiva are normal. NECK: Normal range of motion, supple without lymphadenopathy LUNGS: CTAB and equal. No wheezes rales or rhonchi. HEART: Regular rate and rhythm without murmurs ABDOMEN: Soft, mild suprapubic and right lower quadrant tenderness. No guarding , no rebound BACK: no vertebral tenderness, normal ROM GI/: Right CVA tenderness EXTREMITIES: Normal range of motion, no pitting edema. No cyanosis. NEUROLOGICAL: Cranial nerves grossly intact. Normal sensory/motor exams. PSYCH: Normal mood, normal affect. SKIN: Warm, Dry, normal turgor, no rashes or lesions noted Course - Re-evaluation Re-evalutation: 11/11/17 10:05 Moderate blood on urinalysis, evidence of bilateral nonobstructing renal calculi but no moving ureteral calculus on CT today. There are 6 white blood cells but also 6 squamous epithelial cells, no leukocytes or nitrites on urine. Patient will be treated as if she has just passed a kidney stone or is currently passing 1. Other lab work is unremarkable today. - Vital Signs Vital signs: Temp Pulse Resp BP Pulse Ox 98.4 F 78 16 115/76 99 11/11/17 06:58 11/11/17 06:58 11/11/17 06:58 11/11/17 06:58 11/11/17 06:58 - Laboratory Result Diagrams: 11/11/17 08:13 11/11/17 08:13 Laboratory results interpreted by me: 11/11/17 11/11/17 11/11/17 08:13 08:13 08:43 MCH 33.5 H Chloride 109 H Urine Blood MODERATE H Discharge - Discharge Clinical Impression: Kidney stone Condition: Stable Disposition: HOME, SELF-CARE Additional Instructions: Return immediately for any new or worsening symptoms. Follow up with primary care provider, call tomorrow to make followup appointment. Prescriptions: Ondansetron [Zofran Odt 4 mg Tablet] 1 - 2 tab PO Q4HP PRN #30 tab.rapdis PRN Reason: Ketorolac Tromethamine [Toradol 10 mg Tablet] 10 mg PO Q6HP PRN #20 tablet PRN Reason: Tamsulosin HCl [Flomax 0.4 mg Cap.sr] 0.4 mg PO DAILY #7 cap.sr.24h Referrals: SARAHI SIEGEL DO [[facility]] - Follow up as needed
[2017-11-11 08:20] LABS: ABSOLUTE BASOPHILS # (AUTO) 0.1 10^3/uL (0.0-0.2); ABSOLUTE MONOCYTES (AUTO) 0.8 10^3/uL (0.1-1.4); ABSOLUTE NEUT (AUTO) 5.8 10^3/uL (1.7-8.2); BASOPHILS % (AUTO) 0.7 % (0-2); EOSINOPHILS % (AUTO) 0.4 % (0-6); HEMATOCRIT 39.9 % (36.0-47.0); HEMOGLOBIN 13.8 g/dL (12.0-15.5); LYMPHOCYTES % (AUTO) 22.9 % (13-45); MEAN CORPUSCULAR HEMOGLOBIN 33.5 pg (27.0-33.4); MEAN CORPUSCULAR HGB CONC 34.5 g/dL (32.0-36.0); MEAN CORPUSCULAR VOLUME 97 fl (80-97); MONOCYTES % (AUTO) 9.5 % (3-13); PLATELET COUNT 243 10^3/uL (150-450); RED CELL DISTRIBUTION WIDTH 13.6 % (11.5-14.0); SEGMENTED NEUTROPHILS % (AUTO) 66.5 % (42-78); TOTAL CELLS COUNTED % (AUTO) 100 %; WHITE BLOOD COUNT 8.7 10^3/uL (4.0-10.5)
[2017-11-11 08:56] LABS: ALANINE AMINOTRANSFERASE 18 U/L (9-52); ALBUMIN 3.8 g/dL (3.5-5.0); ALKALINE PHOSPHATASE 54 U/L (38-126); ANION GAP 9 (5-19); ASPARTATE AMINO TRANSFERASE 20 U/L (14-36); BILIRUBIN,DIRECT 0.4 mg/dL (0.0-0.4); BLOOD UREA NITROGEN 15 mg/dL (7-20); CALCIUM 9.5 mg/dL (8.4-10.2); CARBON DIOXIDE 26 mmol/L (22-30); CHLORIDE 109 mmol/L (98-107); GLUCOSE 90 mg/dL (75-110); POTASSIUM 4.1 mmol/L (3.6-5.0); SODIUM 144.3 mmol/L (137-145); TOTAL PROTEIN 6.7 g/dL (6.3-8.2)
[2017-11-11 09:15] LABS: BILIRUBIN,TOTAL 0.5 mg/dL (0.2-1.3)
--- NOTE | 2017-11-11 09:35 | RADIOLOGY REPORT (SQ) ---
EXAM DESCRIPTION: CT LTD RENAL STONE PROTOCOL ON COMPLETED DATE/TIME: 11/11/2017 9:09 am REASON FOR STUDY: flank pain, left COMPARISON: None. TECHNIQUE: CT scan of the abdomen and pelvis performed without intravenous or oral contrast. Images reviewed with lung, soft tissue, and bone windows. Reconstructed coronal and sagittal MPR images revi ewed. All images stored on PACS. All CT scanners at this facility use dose modulation, iterative reconstruction, and/or weight based d osing when appropriate to reduce radiation dose to as low as reasonably achievable (ALARA). [facility]: Dose Right [facility]: CareDose [facility]: Dose Right [facility]: Teradose 4D [facility]: Smart Technologies RADIATION DOSE: CT Rad equipment meets quality standard of care and radiation dose reduction techniq ues were employed. CTDIvol: 6.4 mGy. DLP: 329 mGy-cm.mGy. LIMITATIONS: None. FINDINGS: LOWER CHEST: No significant findings. No nodules or infiltrates. NON-CONTRASTED LIVER, SPLEEN, ADRENALS: Evaluation limited by lack of IV contrast. No identified sign ificant masses. PANCREAS: No masses. No peripancreatic inflammatory changes. GALLBLADDER: No identified stones by CT criteria. No inflammatory changes to suggest cholecystitis. RIGHT KIDNEY AND URETER: Small non-obstructing calculi in the kidney with some of the largest measur ing 3 mm. Assessment limited by lack of IV contrast. LEFT KIDNEY AND URETER: Several non-obstructing calculi in the kidney with some of the largest measu ring up to 6 mm. Assessment limited by lack of IV contrast. AORTA AND RETROPERITONEUM: No aneurysm. No retroperitoneal masses or adenopathy. BOWEL AND PERITONEAL CAVITY: No obvious masses or inflammatory changes. No free fluid. APPENDIX: Normal. PELVIS, BLADDER, AND ABDOMINAL WALL: Several calcified phleboliths in the pelvis. An umbilical ring . Small hypoattenuated structures in the adnexal regions, may represent ovarian follicles. No free fluid. Bladder incompletely distended. BONES: No significant findings. OTHER: No other significant finding. IMPRESSION: 1 Bilateral non-obstructing renal calculi. COMMENT: Quality ID # [id number]: Final reports with documentation of one or more dose reduction techniques (e.g., Automated exposure control, adjustment of the mA and/or kV according to patient size, use of iterative reconstruction technique) TECHNICAL DOCUMENTATION: JOB ID: [id number]- All Rights Reserved Reading location - IP/workstation name: [email or web address]
[2017-11-11 09:42] LABS: APPEARANCE,URINE CLEAR; BILIRUBIN,URINE NEGATIVE (NEGATIVE); GLUCOSE, URINE NEGATIVE (NEGATIVE); KETONES,URINE NEGATIVE (NEGATIVE); LEUKOCYTE ESTERASE,URINE NEGATIVE (NEGATIVE); NITRITE,URINE NEGATIVE (NEGATIVE); PROTEIN,URINE NEGATIVE (NEGATIVE); URINE SPECIFIC GRAVITY 1.008; UROBILINOGEN,URINE NEGATIVE mg/dL (<2.0)
[2017-11-11 09:44] LABS: COLOR,URINE YELLOW
[2017-11-11 10:23] VITALS: BP 121/68
[2017-11-11] MEDS ORDERED: OXYCODONE-ACETAMINOPHEN 5-325 MG TABLET PO ONE (10:23)
== END 2017-11-11 10:29 | disposition home or self-care (01) ==
LOC: ER 06:55
DX: N20.0 Calculus of kidney (principal); R10.9 Unspecified abdominal pain; M54.9 Dorsalgia, unspecified; R30.9 Painful micturition, unspecified; R11.0 Nausea; R10.31 Right lower quadrant pain
CPT/HCPCS: 99284; 96372; 36415; 84703; 85025; 80053; 81001; 76380; J1885

== ENCOUNTER 2017-11-18 20:33 | Emergency (ER) | payer SELFPAY ==
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
[2017-11-18 22:39] VITALS: BP 121/80
== END 2017-11-18 22:40 | disposition home or self-care (01) ==
LOC: ER 20:33
DX: S60.221A Contusion of right hand, initial encounter (principal); W22.8XXA Striking against or struck by other objects, initial encounter; Z87.81 Personal history of (healed) traumatic fracture
CPT/HCPCS: 99283

== ENCOUNTER 2017-12-16 09:54 | Emergency (ER) | payer SELFPAY ==
[2017-12-16] MEDS ORDERED: LIDOCAINE 1% INJ-PF (10 MG/ML) 30 ML SDV INJ ONE (10:39)
[2017-12-16] MEDS ORDERED: HYDROMORPHONE HCL INJ/PF 2 MG/ML AMPULE IV ONE ×2 (10:55→11:52)
--- NOTE | 2017-12-16 11:04 | ER Document Report ---
ED General - General Stated Complaint: ARM LACERATION Time Seen by Provider: 12/16/17 10:33 Mode of Arrival: Ambulatory Information source: Patient, Relative, [facility] Records Notes: 27-year-old female with bipolar disorder, depression presents with multiple lacerations to her left forearm. Patient states that just prior to arrival she was carrying her dog when she tripped and fell falling forward with her arm outstretched. Patient fell with her arm outstretched and it went through a glass window. Patient denies any head injury, loss of consciousness. She denies any preceding dizziness, chest pain, shortness of breath. Her tetanus is up-to-date. She denies any current medication use. Last menstrual period was 1 month prior to arrival. TRAVEL OUTSIDE OF THE [place] IN LAST 30 DAYS: No - HPI Onset: Just prior to arrival Onset/Duration: Sudden Quality of pain: Achy, Throbbing Severity: Moderate Pain Level: 2 Associated symptoms: None Exacerbated by: Movement Relieved by: Remaining still Similar symptoms previously: No Recently seen / treated by doctor: No - Related Data Allergies/Adverse Reactions: tramadol [Tramadol] Adverse Reaction (Intermediate, Verified 09/09/17 16:44) Nausea Past Medical History - General Information source: Patient, Relative, [facility] Records Last Menstrual Period: 1 month - Social History Smoking Status: Current Every Day Smoker Cigarette use (# per day): Yes - 10 Smoking Education Provided: Yes - 4 minutes of smoking cessation provided Frequency of alcohol use: None Drug Abuse: None Lives with: Spouse/Significant other Family History: Arthritis, CAD, COPD, CVA, Hyperlipidemia, Hypertension, Malignancy, Thyroid Disfunction Patient has suicidal ideation: No Patient has homicidal ideation: No Renal/ Medical History: Reports: Hx Kidney Stones, Hx Ovarian Cysts. Denies: Hx Peritoneal Dialysis Psychiatric Medical History: Reports: Hx Bipolar Disorder, Hx Depression Past Surgical History: Reports: Hx Adenoidectomy, Hx Myringotomy, Hx Oral Surgery - plates in jaw, Hx Tonsillectomy - Immunizations Immunizations up to date: Yes Hx Diphtheria, Pertussis, Tetanus Vaccination: Yes - within 5 yrs Review of Systems - Review of Systems Notes: REVIEW OF SYSTEMS: CONSTITUTIONAL : Denies fever, chills, or sweats. Denies recent illness. Denies weight loss, recent hospitalizations. EENT: Denies visual changes, eye pain. Denies nasal or sinus congestion or discharge. Denies sore throat, oral lesions, difficulty swallowing. CARDIOVASCULAR: Denies chest pain. Denies palpitations. Denies lower extremity edema. RESPIRATORY: Denies cough, cold, or chest congestion. Denies shortness of breath, wheezing. GASTROINTESTINAL: Denies abdominal pain or distention. Denies nausea, vomiting , or diarrhea. Denies blood in vomitus, stools, or per rectum. Denies black, tarry stools. Denies constipation. GENITOURINARY: Denies difficulty urinating, painful urination, frequency, blood in urine, or vaginal discharge. MUSCULOSKELETAL: Denies back or neck pain or stiffness. Denies joint pain or swelling. SKIN: Denies rash. HEMATOLOGIC : Denies easy bruising or bleeding. LYMPHATIC: Denies swollen glands. NEUROLOGICAL: Denies confusion or altered mental status. Denies passing out or loss of consciousness. Denies dizziness or lightheadedness. Denies headache. Denies weakness or paralysis. Denies problems difficulty with ambulation, slurred speech. Denies sensory loss, numbness, or tingling. Denies seizures. PSYCHIATRIC: Denies anxiety or stress. Denies depression, suicidal ideation, or homicidal ideation. Denies visual or auditory hallucinations. Physical Exam - Vital signs Vitals: Temp Pulse Resp BP Pulse Ox 99 F 101 H 18 133/83 H 99 12/16/17 09:55 12/16/17 09:55 12/16/17 09:55 12/16/17 09:55 12/16/17 09:55 - Notes Notes: PHYSICAL EXAMINATION: GENERAL: Well-appearing, well-nourished and in no acute distress. GCS 15 HEAD: Atraumatic, normocephalic. EYES: Pupils equal round and reactive to light, extraocular movements intact, sclera anicteric, conjunctiva are normal. ENT: Nares patent, oropharynx clear without exudates. Moist mucous membranes. No hemanotympanum . No blood in nares. No dental fracture NECK: Normal range of motion, supple without lymphadenopathy. Trachea midline LUNGS: Breath sounds clear to auscultation bilaterally and equal. No wheezes rales or rhonchi. HEART: Tachycardic, regular rhythm without murmurs. Pulses intact all throughout. ABDOMEN: Soft, nontender, nondistended abdomen. No guarding, no rebound. No masses appreciated. Musculoskeletal: Normal range of motion, no pitting or edema. No cyanosis. Hip non tender, stable. NEUROLOGICAL: Cranial nerves grossly intact. Normal speech, normal gait. Normal sensory, motor, and reflex exams. PSYCH: Normal mood, normal affect. SKIN: Multiple lacerations to left forearm. 11 cm gaping laceration to the left forearm with adjacent 4 cm linear duration at distal forearm. 4 cm superficial laceration at proximal forearm. 3.5 cm laceration left elbow. Course - Re-evaluation Re-evalutation: 12/16/17 18:23 Forearm X-Ray 12/16/17 00:00 IMPRESSION: 1. NEGATIVE STUDY OF THE LEFT FOREARM. 12/16/17 18:24 27-year-old female with bipolar disorder, depression presents with multiple lacerations to her left forearm. Patient states that just prior to arrival she was carrying her dog when she tripped and fell falling forward with her arm outstretched. Patient fell with her arm outstretched and it went through a glass window. Patient denies any head injury, loss of consciousness. Upon arrival patient tachycardic otherwise vitals were stable. She has multiple complex lacerations to her arm which were repaired without complication. Wounds were cleaned, dressed and Vic wrap was placed. Patient provided the opportunity to ask questions, and express concerns. Discharge instructions discussed. Patient is agreeable with discharge home. Return indications explained and discussed with the patient who displays understanding. Patient encouraged to return to the emergency department immediately with any concerns. 12/18/17 06:34 - Vital Signs Vital signs: Temp Pulse Resp BP Pulse Ox 98.5 F 72 18 123/81 98 12/16/17 11:16 12/16/17 11:16 12/16/17 11:16 12/16/17 11:16 12/16/17 11:16 - Diagnostic Test Radiology reviewed: Image reviewed, Reports reviewed Procedures - Laceration/Wound Repair Left Volar Arm Time completed: 13:00 Wound length (cm): 11 - Multiple lacerations see physical exam Wound's Depth, Shape: Irregular, Flap, Contused tissue Laceration pre-procedure: Sterile PPE donned, Betadine prep applied, Sterile drapes applied, Shur-Clens applied Anesthetic type: 1% Lidocaine Volume Anesthetic (mLs): 20 Wound explored: Clean, No foreign body removed Wound Debrided: Moderate Wound Repaired With: Sutures Suture Size/Type: 4:0, Ethilon Number of Sutures: 25 Layer Closure?: Yes Deep Layer Suture Size/Type: Chromic Number Deep Layer Sutures: 8 Post-procedure wound care: Sterile dressing applied, Splint applied Post-procedure NV exam normal: Yes Complications: No Discharge - Discharge Clinical Impression: Laceration of left elbow Qualifiers: Encounter type: initial encounter Qualified Code(s): S51.012A - Laceration without foreign body of left elbow, initial encounter Laceration of left wrist Qualifiers: Encounter type: initial encounter Qualified Code(s): S61.512A - Laceration without foreign body of left wrist, initial encounter Laceration of left forearm Qualifiers: Encounter type: initial encounter Qualified Code(s): S51.812A - Laceration without foreign body of left forearm, initial encounter Condition: Good Disposition: HOME, SELF-CARE Instructions: Antibiotic Ointment Protection ([facility]), Laceration Care ([facility]), Soap Cleansing ([facility]) Additional Instructions: Her sutures will need to be removed in 10-12 days. Please keep the sutures clean and dry for 48 hours. Please return to the emergency department if he noticed increased pain or erythema around the laceration site. Follow up with your physician tomorrow for further care or return to the ED IMMEDIATELY if symptoms worsen or new concerns occur. If you cannot afford to follow up with your primary care physician a list of low cost clinics have been provided at the end of your discharge papers as well. Prescriptions: Hydrocodone/Acetaminophen [[place] 5-325 mg Tablet] 1 tab PO Q6H #10 tablet Ibuprofen [Motrin 600 Mg Tablet] 600 mg PO TID #15 tablet Forms: Smoking Cessation Education, Return to Work
--- NOTE | 2017-12-16 11:09 | RADIOLOGY REPORT (SQ) ---
EXAM DESCRIPTION: FOREARM LEFT COMPLETED DATE/TIME: 12/16/2017 10:53 am REASON FOR STUDY: laceration COMPARISON: 02/25/2012 NUMBER OF VIEWS: Two views. TECHNIQUE: Two radiographic images acquired of the left forearm, including elbow and wrist in at [address] one projection. LIMITATIONS: None. FINDINGS: MINERALIZATION: Normal. BONES: No acute fracture. No worrisome bone lesions. SOFT TISSUES: No obvious swelling or foreign body. OTHER: External bandage dressing over the proximal forearm, limits detail somewhat. IMPRESSION: 1. NEGATIVE STUDY OF THE LEFT FOREARM. TECHNICAL DOCUMENTATION: JOB ID: [id number] [employer]- All Rights Reserved Reading location - IP/workstation name: [email or web address]
[2017-12-16 13:38] VITALS: BP 123/81
== END 2017-12-16 15:25 | disposition home or self-care (01) ==
LOC: ER 09:54
DX: S51.812A Laceration without foreign body of left forearm, initial encounter (principal); S61.512A Laceration without foreign body of left wrist, initial encounter; S51.012A Laceration without foreign body of left elbow, initial encounter; W01.110A Fall on same level from slipping, tripping and stumbling with subsequent striking against sharp glass, initial encounter; F17.210 Nicotine dependence, cigarettes, uncomplicated; Z71.6 Tobacco abuse counseling; R00.0 Tachycardia, unspecified
CPT/HCPCS: 96376; 99406; 99283; 96374; 73090; 12034; J3490; J1170

== ENCOUNTER 2017-12-26 06:21 | Emergency (ER) | payer SELFPAY ==
[2017-12-26] MEDS ORDERED: DOCUSATE SODIUM 100 MG CAPSULE RT_EAR ONE (07:26)
--- NOTE | 2017-12-26 07:28 | ER Document Report ---
ED General - General Mode of Arrival: Ambulatory Information source: Patient TRAVEL OUTSIDE OF THE [place] IN LAST 30 DAYS: No - General Chief Complaint: Ear Pain Stated Complaint: STITCH REMOVAL AND LEFT EAR ACHE Time Seen by Provider: 12/26/17 07:19 Notes: Patient is a 27 year old female with bipolar disorder and depression presents to the emergency department asking for stitch removal from the left forearm and left ear drainage. Patient was seen in the emergency department 10 days ago after falling through a glass window and received multiple stitches in her left arm. She also complains of left ear drainage and pain. She states her ear has been draining for approximately 1.5 weeks although it stopped draining a few days ago. She describes the drainage as a clear liquid and states she had some intermittent pain. At bedside she states she feels some pressure in her left ear. She reports a history of multiple ear infections as a child and permanent damage to the left TM. (CANDACE BETTS) - Related Data Allergies/Adverse Reactions: tramadol [Tramadol] Adverse Reaction (Intermediate, Verified 12/26/17 06:41) Nausea Past Medical History - General Information source: Patient - Social History Smoking Status: Current Every Day Smoker Cigarette use (# per day): Yes Chew tobacco use (# tins/day): No Smoking Education Provided: No Family History: Arthritis, CAD, COPD, CVA, Hyperlipidemia, Hypertension, Malignancy, Thyroid Disfunction Renal/ Medical History: Reports: Hx Kidney Stones, Hx Ovarian Cysts Psychiatric Medical History: Reports: Hx Bipolar Disorder, Hx Depression Past Surgical History: Reports: Hx Adenoidectomy, Hx Myringotomy, Hx Oral Surgery - plates in jaw, Hx Tonsillectomy - Immunizations Immunizations up to date: Yes Hx Diphtheria, Pertussis, Tetanus Vaccination: Yes - within 5 yrs Review of Systems - Review of Systems Constitutional: No symptoms reported EENT: See HPI, Ear discharge Cardiovascular: No symptoms reported Respiratory: No symptoms reported Gastrointestinal: No symptoms reported Genitourinary: No symptoms reported Musculoskeletal: See HPI Skin: See HPI Hematologic/Lymphatic: No symptoms reported Neurological/Psychological: No symptoms reported -: Yes All other systems reviewed and negative Physical Exam - General General appearance: Appears well, Alert In distress: None - HEENT Head: Normocephalic Eyes: Normal Conjunctiva: Normal Extraocular movements intact: Yes Pupils: PERRL Tympanic membrane: Normal, Other - Right- Occluded with a copious amount of cerumen. Left- No signs of drainage, small amount of cerumen. Scarring consitent with patient's history. - Respiratory Respiratory status: No respiratory distress - Cardiovascular Rhythm: Regular Heart sounds: Normal auscultation Murmur: No Friction rub: No Gallop: None auscultated - Abdominal Inspection: Normal - Back Back: Normal - Extremities General upper extremity: Normal ROM General lower extremity: Normal ROM Forearm: Other - Well-healed stitches in the left forearm, no signs of infection. - Neurological Neuro grossly intact: Yes Cognition: Normal Orientation: AAOx4 Amarilis Coma Scale Eye Opening: Spontaneous Amarilis Coma Scale Verbal: Oriented Amarilis Coma Scale Motor: Obeys Commands Amarilis Coma Scale Total: 15 Speech: Normal - Psychological Associated symptoms: Normal affect, Normal mood - Skin Skin Temperature: Warm Skin Moisture: Dry - Vital signs Vitals: Temp Pulse Resp BP Pulse Ox 98.8 F 85 16 100/71 100 12/26/17 06:39 12/26/17 06:39 12/26/17 06:39 12/26/17 06:39 12/26/17 06:39 Course - Re-evaluation Re-evalutation: 12/26/17 10:25 The sutures were removed and the wounds look good. The right ear was soaked with Colace and then irrigated, did soften wax up some but mostly wax remains. I discussed with the patient the need to use over-the- counter earwax removal drops on a daily basis for possibly a week or more to soften the wax and get it to come out. She does relate a past history of having to have her ears "suctioned out" when she was younger due to wax buildup. The left TM was scarred but was not bulging. She states she has a pressure sensation in there with decreased hearing which is consistent with eustachian tube dysfunction. She advised to try agzh-vwx-hsrmdko medication such as Alison on a daily basis as it may take several days for her eustachian tube to open up and drain. Sudafed is another option, however it is a real ordeal to obtain now because you have to sign lasers at the pharmacy to buy it. Another option we discussed is trying Afrin nose spray, tilting her head back in squirting his stream and the nose is usually sniff to try to hit the opening of the eustachian tube with the Afrin nose spray. She is advised she may need to see an ear nose and throat doctor if these tricks do not help. (STELLA WALDROP) - Vital Signs Vital signs: Temp Pulse Resp BP Pulse Ox 98.1 F 70 16 117/75 98 12/26/17 10:45 12/26/17 10:45 12/26/17 10:45 12/26/17 10:45 12/26/17 10:45 Discharge - Discharge Clinical Impression: Visit for suture removal, Earache on left Excess wax in ear Qualifiers: Laterality: right Qualified Code(s): H61.21 - Impacted cerumen, right ear Eustachian tube dysfunction Qualifiers: Laterality: left Qualified Code(s): H69.82 - Other specified disorders of Eustachian tube, left ear Condition: Stable Disposition: HOME, SELF-CARE Additional Instructions: Try using vrly-jrj-uofiudk earwax removal drops in your right ear on a daily basis for the next few weeks to soften and remove the retained earwax. Try taking something such as Alison or Alison-D on a daily basis to help open up the eustachian tube to your left ear. Afrin nose spray may also help. Follow-up with your doctor or a local N nose and throat doctor if not improving. Scribe Attestation: 12/26/17 10:31 I personally performed the services described in the documentation, reviewed and edited the documentation which was dictated to the scribe in my presence, and it accurately records my words and actions. (STELLA WALDROP) Scribe Documentation - Scribe Written by Tessie:: Tessie Mac, 12/26/2017 07:43 acting as scribe for :: Luis Miguel
[2017-12-26] MEDS ORDERED: DOCUSATE SODIUM 100 MG CAPSULE ONE (08:33)
[2017-12-26 10:57] VITALS: BP 117/75
== END 2017-12-26 10:45 | disposition home or self-care (01) ==
LOC: ER 06:21
DX: H92.02 Otalgia, left ear (principal); H69.92 Unspecified Eustachian tube disorder, left ear; H61.21 Impacted cerumen, right ear; F17.210 Nicotine dependence, cigarettes, uncomplicated; Z48.02 Encounter for removal of sutures; Z86.19 Personal history of other infectious and parasitic diseases
CPT/HCPCS: 99283

== ENCOUNTER 2017-12-29 09:09 | Emergency (ER) | payer SELFPAY ==
[2017-12-29 09:15] VITALS: BP 111/68
--- NOTE | 2017-12-29 09:40 | ER Document Report ---
HPI - HPI Patient complains to provider of: Neck swelling Onset: Last week Pain Level: 1 Context: 27-year-old smoker with history of acne has 2 abscesses lateral right neck there over the carotid artery. The one closest to the base of her neck is more painful because she tries to squeeze it 2 days ago. No fever or chills. Associated Symptoms: None Exacerbated by: Other - Touching them Relieved by: Denies Similar symptoms previously: Yes Recently seen / treated by doctor: No - ROS ROS below otherwise negative: Yes Systems Reviewed and Negative: Yes All other systems reviewed and negative - REPRODUCTIVE LMP: Current Reproductive: DENIES: : Past Medical History - General Information source: Patient - Social History Smoking Status: Current Every Day Smoker Lives with: Family Family History: Arthritis, CAD, COPD, CVA, Hyperlipidemia, Hypertension, Malignancy, Thyroid Disfunction Renal/ Medical History: Reports: Hx Kidney Stones, Hx Ovarian Cysts. Denies: Hx Peritoneal Dialysis Psychiatric Medical History: Reports: Hx Bipolar Disorder, Hx Depression Past Surgical History: Reports: Hx Adenoidectomy, Hx Myringotomy, Hx Oral Surgery - plates in jaw, Hx Tonsillectomy - Immunizations Immunizations up to date: Yes Hx Diphtheria, Pertussis, Tetanus Vaccination: Yes - within 5 yrs Vertical Provider Document - CONSTITUTIONAL Agree With Documented VS: Yes - INFECTION CONTROL TRAVEL OUTSIDE OF THE [place] IN LAST 30 DAYS: No - NECK Neck: Supple. negative: Lymphadenopathy-Left, Lymphadenopathy-Right Notes: 2 fluctuant abscesses over the right carotid artery - NEURO Level of Consciousness: Awake - DERM Integumentary: Abscess - See above Course - Re-evaluation Re-evalutation: 12/29/17 09:42 Dr. Dahl also evaluated the patient will look to the ultrasound since he states that it is okay to do a superficial incision to release the contents of the furuncle structures x 2 - Vital Signs Vital signs: Temp Pulse Resp BP Pulse Ox 98.1 F 75 16 111/68 100 12/29/17 09:13 12/29/17 09:13 12/29/17 09:13 12/29/17 09:13 12/29/17 09:13 Procedures - Incision and Drainage Right Neck Time completed: 10:19 Type: Simple Anesthetic type: 1% Lidocaine mL's of anesthetic: 2 Blade size: 11 I&D procedure: Betadine prep applied, Sterile dressing applied - Small amount corner of 4 x 4 into each incisions bilaterally Incision Method: Incision made by scalpel Amount/type of drainage: Large pus and sebaceous material minimal partial sac extruded Discharge - Discharge Clinical Impression: furuncle incision and drainage Condition: Good Disposition: HOME, SELF-CARE Instructions: Acetaminophen, Acne ([facility]), Doxycycline ([facility]), Use of Over-The- Counter Ibuprofen ([facility]), Post Incision and Drainage, Stop Smoking ([facility]), Warm Packs ([facility]) Additional Instructions: Warm compress twice a day Stop smoking Doxycycline twice a day for 10 days See the distributor cleaner for recheck Return to the emergency room any concerns Prescriptions: Doxycycline Hyclate 100 mg PO BID #20 capsule Referrals: DOMONIQUE PAYNE DO [ACTIVE STAFF] - Follow up in 1 week
[2017-12-29] MEDS ORDERED: ACETAMINOPHEN 325 MG TABLET PO ONE (09:41)
[2017-12-29] MEDS ORDERED: IBUPROFEN 400 MG TABLET PO ONE (09:41)
== END 2017-12-29 10:12 | disposition home or self-care (01) ==
LOC: ER 09:09
DX: L02.12 Furuncle of neck (principal); F17.200 Nicotine dependence, unspecified, uncomplicated
CPT/HCPCS: 99283; 10061; J3490

== ENCOUNTER 2018-08-24 07:21 | Emergency (ER) | payer SELFPAY ==
[2018-08-24 07:26] VITALS: BP 119/79
--- NOTE | 2018-08-24 08:41 | RADIOLOGY REPORT (SQ) ---
EXAM DESCRIPTION: CHEST 2 VIEWS COMPLETED DATE/TIME: 08/24/2018 8:23 am REASON FOR STUDY: cough COMPARISON: 05/27/2017 EXAM PARAMETERS: NUMBER OF VIEWS: two views TECHNIQUE: Digital Frontal and Lateral radiographic views of the chest acquired. RADIATION DOSE: NA LIMITATIONS: none FINDINGS: LUNGS AND PLEURA: No opacities, masses or pneumothorax. No pleural effusion. MEDIASTINUM AND HILAR STRUCTURES: No masses or contour abnormalities. HEART AND VASCULAR STRUCTURES: Heart normal size. No evidence for failure. BONES: No acute findings. HARDWARE: None in the chest. OTHER: No other significant finding. IMPRESSION: NO ACUTE RADIOGRAPHIC FINDING IN THE CHEST. TECHNICAL DOCUMENTATION: JOB ID: [id number] [employer]- All Rights Reserved Reading location - IP/workstation name: [email or web address]
--- NOTE | 2018-08-24 08:59 | ER Document Report ---
HPI - HPI Time Seen by Provider: 08/24/18 07:58 Pain Level: 2 Notes: Patient is a 28-year-old female with no significant past medical history presents emergency department complaining of sinus pain/pressure, nasal congestion/discharge, postnasal drip, sinus headache, dry cough over the past 2 weeks. Patient states that she has been using rkwi-hgq-hhecpdd meds with minimal relief. She is able to eat and drink without difficulty. She is urinating normally. Denies drug allergies aside from tramadol. No other concerns or complaints. Denies any fever, neck pain, sore throat, chest pain, palpitations, syncope, shortness of breath, wheeze, dyspnea, abdominal pain, nausea/vomiting/diarrhea, urinary retention, dysuria, hematuria, loss of control of bowel or bladder, numbness/tingling, saddle anesthesia, muscle paralysis/weakness, or rash. - ROS Systems Reviewed and Negative: Yes All other systems reviewed and negative - CONSTITUTIONAL Constitutional: REPORTS: Chills. DENIES: Fever - EENT EENT: REPORTS: Sore Throat, Ear Pain. DENIES: Eye problems - NEURO Neurology: DENIES: Headache, Weakness, Vision blurred, Dizzinesss / Vertigo - CARDIOVASCULAR Cardiovascular: DENIES: Chest pain - RESPIRATORY Respiratory: REPORTS: Trouble Breathing, Coughing - GASTROINTESTINAL Gastrointestinal: DENIES: Abdominal Pain, Black / Bloody Stools - URINARY Urinary: DENIES: Dysuria, Urgency, Frequency - REPRODUCTIVE Reproductive: DENIES: :, Postmenopausal, Abnormal bleeding / discharge - MUSCULOSKELETAL Musculoskeletal: DENIES: Extremity pain Past Medical History - Social History Smoking Status: Current Every Day Smoker Chew tobacco use (# tins/day): No Family History: Arthritis, CAD, COPD, CVA, Hyperlipidemia, Hypertension, Malignancy, Thyroid Disfunction Patient has suicidal ideation: No Patient has homicidal ideation: No Renal/ Medical History: Reports: Hx Kidney Stones, Hx Ovarian Cysts. Denies: Hx Peritoneal Dialysis Psychiatric Medical History: Reports: Hx Bipolar Disorder, Hx Depression Past Surgical History: Reports: Hx Adenoidectomy, Hx Myringotomy, Hx Oral Surgery - plates in jaw, Hx Tonsillectomy - Immunizations Immunizations up to date: Yes Hx Diphtheria, Pertussis, Tetanus Vaccination: Yes - within 5 yrs Vertical Provider Document - CONSTITUTIONAL Agree With Documented VS: Yes Notes: PHYSICAL EXAMINATION: GENERAL: Well-appearing, well-nourished and in no acute distress. A&Ox4. Answers questions appropriately. Moves comfortably w/o notable distress HEAD: Atraumatic, normocephalic. EYES: Pupils equal round and reactive to light, extraocular movements intact, sclera anicteric, conjunctiva are normal. ENT: EAC clear b/l. TM's intact b/l without erythema, fluid, or perforation. Nares patent and with clear/yellow discharge. oropharynx no erythema without exudates. No tonsilar hypertrophy without erythema or exudate. No palatine shift. Uvula midline. No tongue protrusion. No drooling, hoarseness, or airway compromise. Moist mucous membranes. + maxillary sinus tenderness. NECK: Normal range of motion, supple without lymphadenopathy. No rigidity/meningismus. LUNGS: Breath sounds clear to auscultation bilaterally and equal. No wheezes rales or rhonchi. No retractions HEART: Regular rate and rhythm without murmurs, rubs, gallops. ABDOMEN: Soft, nontender, nondistended abdomen. No guarding, no rebound. Normal bowel sounds present. No CVA tenderness bilaterally. NEUROLOGICAL: Normal speech, normal gait. PSYCH: Normal mood, normal affect. SKIN: Warm, Dry, normal turgor, no rashes or lesions noted. - INFECTION CONTROL TRAVEL OUTSIDE OF THE [place] IN LAST 30 DAYS: No Course - Re-evaluation Re-evalutation: 08/24/18 08:57 Patient is an afebrile, well-hydrated, 28-year-old female who presents emergency department with acute sinusitis. Vitals are acceptable without significant tachycardia, tachypnea, or hypoxia. PE is otherwise unremarkable. Patient is nontoxic-appearing and is tolerating p.o. without difficulty. Chest x-ray unremarkable. No further labs or imaging warranted. Low suspicion for any meningitis, sepsis, peritonsillar/pharyngeal abscess, respiratory compromise, pneumonia, or other emergent systemic condition at this time. Patient is aware this condition can change from initial presentation and she needs to monitor symptoms closely. I will send her home with a pocket prescription for Augmentin. Conservative measures otherwise for symptoms. Recheck with your PCM in 2-3 days. Return to the ED with any worsening/concerning symptoms otherwise as reviewed in discharge. Patient is in agreement. - Vital Signs Vital signs: Temp Pulse Resp BP Pulse Ox 98.1 F 70 20 119/79 98 08/24/18 07:24 08/24/18 07:24 08/24/18 07:24 08/24/18 07:24 08/24/18 07:24 Discharge - Discharge Clinical Impression: Rhinorrhea, Sinus pain Condition: Stable Disposition: HOME, SELF-CARE Additional Instructions: Maintain adequate fluid intake Take meds as directed tylenol/ibuprofen as needed over the counter cold medication as needed for symptoms Humidified air may help Wash your hands regularly Wear a mask when coughing F/u: with your PCM in 3-5 days for a recheck Return to the ED with any fever, worsening pain, chest pain, palpitations, syncope, worsening LACEY, neck pain/stiffness, shortness of breath, wheezing, drooling, trouble swallowing/breathing, abdominal pain, n/v/d, rash, or worsening/concerning symptoms otherwise. Prescriptions: Amox Tr/Potassium Clavulanate [Augmentin 875-125 Tablet] 1 tab PO BID 10 Days #20 tablet Referrals: [facility] [Provider Group] - Follow up as needed [facility] [Provider Group] - Follow up as needed
== END 2018-08-24 09:17 | disposition home or self-care (01) ==
LOC: ER 07:21
DX: J02.9 Acute pharyngitis, unspecified (principal); R09.81 Nasal congestion; J34.89 Other specified disorders of nose and nasal sinuses; H92.09 Otalgia, unspecified ear; F17.200 Nicotine dependence, unspecified, uncomplicated; Z87.442 Personal history of urinary calculi
CPT/HCPCS: 71046; 99283

== ENCOUNTER 2018-11-07 07:31 | Emergency (ER) | payer SELFPAY ==
[2018-11-07 07:43] VITALS: BP 116/77
[2018-11-07] MEDS ORDERED: KETOROLAC TROMETHAMINE 60 MG/2 ML SDV IM ONE (09:26)
[2018-11-07] MEDS ORDERED: LIDOCAINE 5% (700 MG) TRANSDERMAL ADH..PATCH TP ONE (09:26)
[2018-11-07] MEDS ORDERED: METHOCARBAMOL 750 MG TABLET PO ONE (09:27)
--- NOTE | 2018-11-07 09:35 | ER Document Report ---
Addendum entered and electronically signed by DOMONIQUE ARRINGTON PA-C 11/07/18 09:45: Physical Exam - Vital signs Vitals: Temp Pulse Resp BP Pulse Ox 98.2 F 63 16 116/77 98 11/07/18 07:41 11/07/18 07:41 11/07/18 07:41 11/07/18 07:41 11/07/18 07:41 - Notes Notes: PLEASE NOTE ADDENDUM PHYSICAL EXAM IN NOTE INCORRECT! PLEASE SEE THIS PE! PHYSICAL EXAMINATION: Reviewed vital signs and charting by RN GENERAL: Alert, interacts well. No acute distress. HEAD: Normocephalic, atraumatic. EYES: Pupils equal and round. Extraocular movements intact. ENT: Oral mucosa moist, tongue midline. NECK: Full range of motion. Trachea midline. LUNGS: Clear to auscultation bilaterally, no wheezes, rales, or rhonchi. No respiratory distress. HEART: Regular rate and rhythm. No murmur ABDOMEN: soft, non-tender. No distention. Bowel sounds present EXTREMITIES: Moves all 4 extremities spontaneously. No edema, No cyanosis. Able to turn her neck side to side but limited range of motion when turning her neck to the right. Patient is able to abduct and flex the deltoids. Tenderness to palpation just below the right occiput where the trapezius inserts causing radiating tingling into her right shoulder. PSYCH: Normal affect, normal mood. SKIN: Warm, dry, normal turgor. No rashes or lesions noted. Original Note: HPI - HPI Patient complains to provider of: neck pain x 3 weeks Time Seen by Provider: 11/07/18 09:14 Pain Level: 4 Context: Very pleasant 28-year-old female percents the emergency department with chief complaint of right-sided neck pain x3 weeks. She said that she frequently pops her neck and about 3 weeks ago felt a pinch in her neck when she did it. She says that she has had a stiff neck since then. She said the pain radiates from the base of her right occiput to her right superior trapezius down around to the front of her chest. She denies any loss of sensation, paralysis, weakness, vision changes or any neurologic changes. No other complaints. - REPRODUCTIVE Reproductive: DENIES: : Past Medical History - Social History Smoking Status: Current Every Day Smoker Family History: Arthritis, CAD, COPD, CVA, Hyperlipidemia, Hypertension, Malignancy, Thyroid Disfunction Renal/ Medical History: Reports: Hx Kidney Stones, Hx Ovarian Cysts. Denies: Hx Peritoneal Dialysis Psychiatric Medical History: Reports: Hx Bipolar Disorder, Hx Depression Past Surgical History: Reports: Hx Adenoidectomy, Hx Myringotomy, Hx Oral Surgery - plates in jaw, Hx Tonsillectomy - Immunizations Immunizations up to date: Yes Hx Diphtheria, Pertussis, Tetanus Vaccination: Yes - within 5 yrs Vertical Provider Document - CONSTITUTIONAL Notes: PHYSICAL EXAMINATION: Reviewed vital signs and charting by RN GENERAL: Alert, interacts well. No acute distress. HEAD: Normocephalic, atraumatic. EYES: Pupils equal and round. Extraocular movements intact. ENT: Oral mucosa moist, tongue midline. #6 tooth is rotten with a hole in the side the enamel causing it to be very loose. No evidence of gingival infection at this time. NECK: Full range of motion. Trachea midline. EXTREMITIES: Moves all 4 extremities spontaneously. No edema, No cyanosis. PSYCH: Normal affect, normal mood. SKIN: Warm, dry, normal turgor. No rashes or lesions noted. - INFECTION CONTROL TRAVEL OUTSIDE OF THE [place] IN LAST 30 DAYS: No Course - Re-evaluation Re-evalutation: 11/07/18 09:35 Overall well-appearing in no acute distress, symptoms most consistent with a cervical nerve root impingement. No red flags. Symptomatic control and instructions given. Strict return precautions given. Patient is stable for discharge. - Vital Signs Vital signs: Temp Pulse Resp BP Pulse Ox 98.2 F 63 16 116/77 98 11/07/18 07:41 11/07/18 07:41 11/07/18 07:41 11/07/18 07:41 11/07/18 07:41 Discharge - Discharge Clinical Impression: Neck strain Qualifiers: Encounter type: initial encounter Qualified Code(s): S16.1XXA - Strain of muscle, fascia and tendon at neck level, initial encounter Condition: Good Disposition: HOME, SELF-CARE Additional Instructions: Your pain is related to impingement one of your cervical nerve roots and will take 6-8 weeks completely resolved. For your pain: Take ibuprofen 600 mg and acetaminophen 1000 mg every 6 hours together as needed for pain. In addition to this, purchased the product that is sold hvgj-puz-urrgxgg cold Aspercreme with lidocaine. Apply to the affected area per bottle instructions. You should also apply heat to the area regularly using an electric heating plant pad. Return to the emergency department immediately if you develop weakness, loss of sensation, chest pain, shortness of breath, have worsening of your symptoms, or any other symptoms that are worrisome to you.
== END 2018-11-07 10:22 | disposition home or self-care (01) ==
LOC: ER 07:31
DX: S16.1XXA Strain of muscle, fascia and tendon at neck level, initial encounter (principal); X58.XXXA Exposure to other specified factors, initial encounter; K08.89 Other specified disorders of teeth and supporting structures; F17.200 Nicotine dependence, unspecified, uncomplicated
CPT/HCPCS: 99283; 96372; J1885; J3490

== ENCOUNTER 2018-11-08 20:45 | Emergency (ER) | payer SELFPAY ==
[2018-11-08 21:01] VITALS: BP 117/63
[2018-11-08] MEDS ORDERED: IBUPROFEN 600 MG TABLET PO ONE (22:00)
--- NOTE | 2018-11-08 22:12 | ER Document Report ---
HPI - HPI Time Seen by Provider: 11/08/18 21:47 Pain Level: 4 Context: Patient is a 28-year-old female who presents emergency department with right knee pain. She states that she was at the pharmacy yesterday and she slipped in a rain puddle and landed on her right lateral knee. She states that she has been taking her Flexeril and Tylenol that she was prescribed yesterday, but states that she continues to have pain. She has not been taking ibuprofen. She is able to walk, but states that is very painful. - ROS Notes: REVIEW OF SYSTEMS: CONSTITUTIONAL : Denies recent illness. Denies recent unintentional weight loss. Denies fever, chills, or sweats. EENT: Denies eye, ear, throat, or mouth pain, discharge, or symptoms. Denies nasal or sinus congestion. CARDIOVASCULAR: Denies chest pain. RESPIRATORY: Denies shortness of breath, cough, congestion, difficulty breathing, or wheezing. GASTROINTESTINAL: Denies nausea, vomiting, and diarrhea. Denies abdominal pain. Denies constipation. GENITOURINARY: Denies difficulty urinating, burning, blood in urine, urgency or frequency. MUSCULOSKELETAL: See HPI SKIN: Denies rash, itchiness, or lesions HEMATOLOGIC : Denies easy bruising or bleeding. LYMPHATIC: Denies swollen, painful, enlarged glands. NEUROLOGICAL: Denies no numbness or tingling denies weakness. Denies headache. Denies altered mental status. Denies alteration in speech. PSYCHIATRIC: Denies stress, anxiety, alteration in sleep patterns, or depression. All other systems reviewed and negative. - REPRODUCTIVE Reproductive: DENIES: : Past Medical History - Social History Smoking Status: Current Every Day Smoker Family History: Arthritis, CAD, COPD, CVA, Hyperlipidemia, Hypertension, Malignancy, Thyroid Disfunction Renal/ Medical History: Reports: Hx Kidney Stones, Hx Ovarian Cysts. Denies: Hx Peritoneal Dialysis Psychiatric Medical History: Reports: Hx Bipolar Disorder, Hx Depression Past Surgical History: Reports: Hx Adenoidectomy, Hx Myringotomy, Hx Oral Surg michelle - plates in jaw, Hx Tonsillectomy - Immunizations Immunizations up to date: Yes Hx Diphtheria, Pertussis, Tetanus Vaccination: Yes - within 5 yrs Vertical Provider Document - CONSTITUTIONAL Notes: PHYSICAL EXAMINATION: GENERAL: Appears well, healthy, well-nourished, no acute distress. HEAD: Normocephalic, atraumatic. EYES: PERRL, conjunctiva normal, all extraocular movements intact, sclera nonicteric ENT: Moist mucous membranes. NECK: Supple, no noticeable swelling, redness, rash. Normal range of motion. LUNGS: Equal breath sounds bilaterally and clear to auscultation. No wheezes rales or rhonchi. CARDIOVASCULAR: S1-S2, regular rate, regular rhythm. Radial pulses 2+, normal. ABDOMEN: Normoactive bowel sounds. Soft, nontender, no guarding, no rebound tenderness, and no masses palpated. EXTREMITIES: Normal strength and range of motion, no pitting or edema. No cyanosis. NEUROLOGICAL: Moves all extremities upon command. Strength 4/5 in right lower extremity, 5/5 in all other extremities. Tenderness noted to right lateral knee. PSYCH: Normal mood, normal affect. SKIN: Warm, dry. Abrasion noted to right lateral knee. Normal skin turgor. - INFECTION CONTROL TRAVEL OUTSIDE OF THE [place] IN LAST 30 DAYS: No Course - Re-evaluation Re-evalutation: 11/08/18 22:40 At this time, there is no acute fracture. I suspect patient has pain due to having contused her right knee on the floor. She also does have abrasions, which seemed to hurt her when her knee bends. I have instructed her to use ibuprofen - Vital Signs Vital signs: Temp Pulse Resp BP Pulse Ox 98.2 F 70 18 117/63 98 11/08/18 21:00 11/08/18 21:00 11/08/18 21:00 11/08/18 21:00 11/08/18 21:00 Discharge - Discharge Clinical Impression: Contusion of right knee Qualifiers: Encounter type: initial encounter Qualified Code(s): S80.01XA - Contusion of right knee, initial encounter Condition: Stable Disposition: HOME, SELF-CARE Instructions: Ice & Elevation ([facility]) Additional Instructions: You are seen today in the emergency department for right knee pain. At this time, there are no fractures. Please follow-up with your primary care provider in regards to this visit. You are being provided an Vic wrap to help provide compression to your knee. Please rest, apply ice, elevate your leg, and keep the Vic wrap on to help with compression. Please continue to take ibuprofen 600 mg and Tylenol 1000 mg every 6 hours for your pain. You can apply triple antibiotic ointment to the abrasion on your knee. If you continue to have pain in 2 weeks, please follow-up with orthopedics below.
--- NOTE | 2018-11-08 22:29 | RADIOLOGY REPORT (SQ) ---
EXAM DESCRIPTION: Right knee RadLex: XR KNEE 4 OR MORE VIEWS Views: 4 CLINICAL HISTORY: 28 years Female, fall; knee pain COMPARISON: None. FINDINGS: Negative for acute fracture, dislocation, or radiopaque foreign body. No joint effusion. No lytic bone changes or periosteal reaction. IMPRESSION: 1. No acute findings.
== END 2018-11-08 22:55 | disposition home or self-care (01) ==
LOC: ER 20:45
DX: W01.0XXA Fall on same level from slipping, tripping and stumbling without subsequent striking against object, initial encounter (principal); S80.01XA Contusion of right knee, initial encounter; F17.200 Nicotine dependence, unspecified, uncomplicated; Z87.442 Personal history of urinary calculi
CPT/HCPCS: 99283

== ENCOUNTER 2019-05-07 17:22 | Emergency (ER) | payer SELFPAY ==
[2019-05-07 17:30] VITALS: BP 133/83
[2019-05-07] MEDS ORDERED: IBUPROFEN 800 MG TABLET PO ONE (17:46)
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
--- NOTE | 2019-05-07 18:34 | RADIOLOGY REPORT (SQ) ---
EXAM DESCRIPTION: ELBOW RIGHT OVER 2 VIEWS COMPLETED DATE/TIME: 05/07/2019 6:24 pm REASON FOR STUDY: pain s/p fall-injury COMPARISON: None. NUMBER OF VIEWS: Four views. TECHNIQUE: AP, lateral, and both oblique radiographic images acquired of the right elbow. LIMITATIONS: None. FINDINGS: MINERALIZATION: Normal. BONES: There is nondisplaced fracture of the radial head in the sagittal plane best seen on the AP vi ew. JOINT: There is a joint effusion. SOFT TISSUES: No soft tissue swelling. No foreign body. OTHER: No other significant finding. IMPRESSION: Radial head fracture. TECHNICAL DOCUMENTATION: JOB ID: [id number] [employer]- All Rights Reserved Reading location - IP/workstation name: [email or web address]
--- NOTE | 2019-05-07 18:35 | RADIOLOGY REPORT (SQ) ---
EXAM DESCRIPTION: ELBOW LEFT OVER 2 VIEWS COMPLETED DATE/TIME: 05/07/2019 6:24 pm REASON FOR STUDY: pain s/p fall-injury COMPARISON: None. NUMBER OF VIEWS: Four views. TECHNIQUE: AP, lateral, and both oblique radiographic images acquired of the left elbow. LIMITATIONS: None. FINDINGS: MINERALIZATION: Normal. BONES: Cannot entirely exclude a radial head fracture. JOINT: There is a joint effusion. SOFT TISSUES: No soft tissue swelling. No foreign body. OTHER: No other significant finding. IMPRESSION: Joint effusion. Cannot entirely exclude a radial head fracture. TECHNICAL DOCUMENTATION: JOB ID: [id number] [employer]- All Rights Reserved Reading location - IP/workstation name: [email or web address]
--- NOTE | 2019-05-07 18:41 | RADIOLOGY REPORT (SQ) ---
EXAM DESCRIPTION: KNEE RIGHT 4 VIEWS COMPLETED DATE/TIME: 05/07/2019 6:24 pm REASON FOR STUDY: pain s/p fall-injury COMPARISON: None. NUMBER OF VIEWS: Four views. TECHNIQUE: AP, lateral, and both oblique radiographic images acquired of the right knee. LIMITATIONS: None. FINDINGS: MINERALIZATION: Normal. BONES: There is a generally transverse fracture of the patella. This may be slightly comminuted. JOINT: Joint effusion. SOFT TISSUES: No soft tissue swelling. No radio-opaque foreign body. OTHER: No other significant finding. IMPRESSION: Patellar fracture. TECHNICAL DOCUMENTATION: JOB ID: [id number] [employer]- All Rights Reserved Reading location - IP/workstation name: [email or web address]
== END 2019-05-07 19:38 | disposition home or self-care (01) ==
LOC: ER 17:22
DX: S82.034A Nondisplaced transverse fracture of right patella, initial encounter for closed fracture (principal); S52.124A Nondisplaced fracture of head of right radius, initial encounter for closed fracture; M25.561 Pain in right knee; M25.521 Pain in right elbow; M25.522 Pain in left elbow; W05.2XXA Fall from non-moving motorized mobility scooter, initial encounter; F17.200 Nicotine dependence, unspecified, uncomplicated; F12.10 Cannabis abuse, uncomplicated
CPT/HCPCS: 99283; 73080 ×2; 73564; L1830

== ENCOUNTER 2019-05-15 07:12 | Emergency (ER) | payer SELFPAY ==
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
[2019-05-15 10:26] VITALS: BP 131/86
== END 2019-05-15 10:16 | disposition home or self-care (01) ==
LOC: ER 07:12
DX: S09.22XA Traumatic rupture of left ear drum, initial encounter (principal); H92.02 Otalgia, left ear; W50.0XXA Accidental hit or strike by another person, initial encounter; F17.200 Nicotine dependence, unspecified, uncomplicated; Z88.6 Allergy status to analgesic agent
CPT/HCPCS: 99282

== ENCOUNTER 2020-02-20 15:29 | Emergency (ER) | payer OTHER ==
[2020-02-20 15:35] VITALS: BP 120/71
[2020-02-20] MEDS ORDERED: KETOROLAC TROMETHAMINE INJ/PF 30 MG/1 ML SDV IM ONE (15:58)
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
== END 2020-02-20 16:12 | disposition home or self-care (01) ==
LOC: ER 15:29
DX: S00.03XA Contusion of scalp, initial encounter (principal); M79.10 Myalgia, unspecified site; R07.89 Other chest pain; R51.9 Headache, unspecified; M54.9 Dorsalgia, unspecified; F17.200 Nicotine dependence, unspecified, uncomplicated; Z79.899 Other long term (current) drug therapy; V87.7XXA Person injured in collision between other specified motor vehicles (traffic), initial encounter
CPT/HCPCS: 99284; 96372; J1885

== ENCOUNTER → 2020-03-07 | Outpatient (CLI) | payer MEDICAID ==
[2020-03-07 11:57] VITALS: BP 130/66
--- NOTE | 2020-03-07 11:57 | ER RDC ASSESSMENT REPORT ---
Intake - In the Last 14 days Have you traveled outside [place]?: No Have you been in close contact with someone CONFIRMED: Yes Worked in Healthcare?: No - Symptoms Subjective Fever([place] feverish): No Chills: No Muscule Aches: No Runny Nose: No Sore Throat: No Cough (New or worsening chronic cough): No Shortness of breath: No Nausea or Vomiting: No Headache: No Abdominal Pain: No Diarrhea(3 or more loose stools in last 24 hours): No - Do you have any of the following Chronic lung disease: Asthma or emphysema or COPD: Yes Chronic Lung Disease Comment: History of asthma Cystic Fibrosis: No Diabetes: No High Blood Pressure: No Cardiovascular Disease: No Chronic Kidney Disease: No Chronic Liver Disease: No Chronic blood disorder like Sickle Cell Disease: No Weak immune system due to disease or medication: No Neurologic condition that limits movement: No Developmental delay - Moderate to Severe: No Recent (within past 2 weeks) or current : No Morbid Obesity (>100 pounds over ideal weight): No Obesity Comment: Height 5 feet 4 inches weight 165 pounds - Objective Temperature: 98.9 F Pulse Rate: 96 Respiratory Rate: 16 Blood Pressure: 130/66 O2 Sat by Pulse Oximetry: 98 Objective: Given above, testing performed: If Testing Performed: Test Specimen Type Sent to General - General Information source: Patient Notes: Patient here at [facility] for Covid testing. Patient reports friend's son had tested positive last Saturday. Patient has been exposed to her son all week. Patient denies any symptoms at this time. Patient does not have a local PCP - Related Data Allergies/Adverse Reactions: tramadol Allergy (Verified 05/15/19 07:42) Past Medical History - Social History Smoking Status: Current Every Day Smoker Cigarette use (# per day): Yes - Smokes a pack a day Smoking Education Provided: Yes - Quit smoking Family History: Arthritis, CAD, COPD, CVA, Hyperlipidemia, Hypertension, Malignancy, Thyroid Disfunction Renal/ Medical History: Reports: Hx Kidney Stones, Hx Ovarian Cysts. Denies: Hx Peritoneal Dialysis Psychiatric Medical History: Reports: Hx Bipolar Disorder, Hx Depression Past Surgical History: Reports: Hx Adenoidectomy, Hx Gynecologic Surgery - Laparoscopy for endometriosis, Hx Myringotomy, Hx Oral Surgery - plates in jaw, Hx Tonsillectomy Physical Exam - General General appearance: Appears well, Alert In distress: None Notes: PHYSICAL EXAMINATION: GENERAL: Well-appearing and in no acute distress. HEAD: Atraumatic, normocephalic. EYES: sclera anicteric, conjunctiva are normal. ENT: nares patent. Moist mucous membranes. NECK: Normal range of motion, supple without lymphadenopathy LUNGS: CTAB and equal. No wheezes rales or rhonchi. Respirations even and unlabored lung sounds clear. HEART: Regular rate and rhythm without murmurs ABDOMEN: Soft, nontender, normal bowel sounds, no guarding. EXTREMITIES: Normal range of motion, no pitting edema. No cyanosis. NEUROLOGICAL: Cranial nerves grossly intact. Normal speech. Normal gait. PSYCH: Normal mood, normal affect. SKIN: Warm, Dry, normal turgor, no rashes or lesions noted Diagnostic Results Laboratory Results: Pending Covid testing results. Patient provided instructions regarding Covid to include: As a person under investigation for Covid 19, the [place] department of Health and Human Services, division of public health advises you to adhere to the following guidance until your test results are reported to you. If your test result is positive, you will receive additional information from your provider and your local health department at that time. Remain at home until you are cleared by the health provider or public health authorities. Keep a log of visitors to your home, notify any visitors to your home of your isolation status. If you plan to move to a new address or leave the critical access hospital, notify the local health department in your County. Call your doctor or seek care if you have an urgent medical need. Before seeking medical care, call ahead to get instructions from the provider before arriving at the medical office clinic or hospital. Notify them that you are being tested for the virus that causes Covid 19 so that arrangements can be made, as necessary, to prevent transmission to others in the healthcare setting. Next, notify the local health department in your county. If a medical emergency arises and you need to call 911, inform the first responders that you are being tested for the virus that causes Covid 19. Next, notify the local health department in your county. Patient Education/Counseling Counseling/Education: Patient presents with upper respiratory symptoms worrisome for possible Covid 19. Patient does not have emergency worring symptoms such as difficulty breathing, shortness of breath, chest pain, pressure, confusion or cyanosis. Patient appears suitable for discharge. Patient instructed to follow-up with urgent care or to ED for any change in condition. patient's vital signs are stable and patient is nontoxic in appearance. Good return precautions have been discussed with patient, patient verbalized understanding and is agreeable with discharge plan of care at this time. RDC Discharge - Discharge Clinical Impression: Encounter for screening laboratory testing for COVID-19 virus in asymptomatic patient Condition: Stable Disposition: Home; Selfcare
== END ==
LOC: RDC 11:16
PROVIDERS: ATTEND Nurse Practitioner Family
DX: Z20.828 Contact with and (suspected) exposure to other viral communicable diseases (principal); F17.210 Nicotine dependence, cigarettes, uncomplicated; F31.9 Bipolar disorder, unspecified
CPT/HCPCS: 87635; 99201; 99211; C9803

== ENCOUNTER 2020-04-30 08:11 | Emergency (ER) | payer SELFPAY ==
--- NOTE | 2020-04-30 10:03 | ER Document Report ---
ED Respiratory Problem - General Chief Complaint: Congestion Stated Complaint: COUGH,CONGESTION,SHORT OF BREATH Time Seen by Provider: 04/30/20 09:25 Notes: CHIEF COMPLAINT: Cough for 1 week HPI: 30-year-old female presenting with slight cough for 1 week, nasal congestion, no fever, occasional shortness of breath, reports of burning over the anterior chest with deep breathing. Patient does smoke. Patient states that she is continue to smoke despite her illness. Patient states that she is not concerned about Covid and does not want Covid testing. Patient states that she gets ill like this every year with similar symptoms she believes it is because of her smoking. ROS: See HPI - all other systems were reviewed and are otherwise negative Constitutional: no fever Eyes: no drainage, no blurred vision ENT: no runny nose, no sore throat Cardiovascular: Positive chest pain with cough Resp: Positive occasional SOB, + cough GI: no vomiting, no diarrhea, no abdominal pain : no dysuria Integumentary: no rash Allergy: no hives Musculoskeletal: no extremity pain or swelling Neurological: no numbness/tingling, no weakness MEDICATIONS: I agree with the patient medications as charted by the RN. ALLERGIES: I agree with the allergies as charted by the RN. PAST MEDICAL HISTORY/PAST SURGICAL HISTORY: Reviewed and agree as charted by RN. SOCIAL HISTORY: Reviewed and agree as charted by RN. FAMILY HISTORY: No significant familial comorbid conditions directly related to patient complaint EXAM: Reviewed vital signs as charted by RN. CONSTITUTIONAL: Alert and oriented and responds appropriately to questions. Well-appearing; well-nourished HEAD: Normocephalic; atraumatic EYES: PERRL; Conjunctivae clear, sclerae non-icteric ENT: normal nose; no rhinorrhea; moist mucous membranes; pharynx without lesions noted, no uvula edema or deviation, no tonsillar hypertrophy, phonation normal NECK: Supple without meningismus; non-tender; no cervical lymphadenopathy, no masses CARD: RRR; no murmurs, no clicks, no rubs, no gallops; symmetric distal pulses RESP: Normal chest excursion without splinting or tachypnea; breath sounds clear and equal bilaterally; no wheezes, no rhonchi, no rales, pulse oximetry 98% on room air not hypoxic ABD/GI: Normal bowel sounds; non-distended; soft, non-tender, no rebound, no guarding; no palpable organomegaly or masses. BACK: The back appears normal and is non-tender to palpation, there is no CVA tenderness EXT: Normal ROM in all joints; no cyanosis, no effusions, no edema SKIN: Normal color for age and race; warm; dry; good turgor; no acute lesions noted NEURO: Moves all extremities equally; Motor and sensory function intact PSYCH: The patient's mood and manner are appropriate. Grooming and personal hygiene are appropriate. MDM: 30-year-old female who smokes presenting for cough for a week with congestion. Occasional shortness of breath. Occasional chest discomfort with cough. She declines Covid testing. She declines EKG or work-up for cardiac issues. She is aware we cannot rule out coronary problem without testing. Patient states that she has had similar symptoms every year for many years. Will obtain chest x-ray for pneumonia. The patient was evaluated during the global COVID-19 pandemic and that diagnosis was suspected/considered upon their initial presentation. Their evaluation, treatment and testing was consistent with current guidelines for patients who present with complaints or symptoms that may be related to COVID-19 TRAVEL OUTSIDE OF THE [place] IN LAST 30 DAYS: No - Related Data Allergies/Adverse Reactions: tramadol Allergy (Verified 05/15/19 07:42) Past Medical History - Social History Smoking Status: Current Every Day Smoker Frequency of alcohol use: Social Drug Abuse: Marijuana Family History: Arthritis, CAD, COPD, CVA, Hyperlipidemia, Hypertension, Malignancy, Thyroid Disfunction Renal/ Medical History: Reports: Hx Kidney Stones, Hx Ovarian Cysts. Denies: Hx Peritoneal Dialysis Psychiatric Medical History: Reports: Hx Bipolar Disorder, Hx Depression Past Surgical History: Reports: Hx Adenoidectomy, Hx Gynecologic Surgery - Laparoscopy for endometriosis, Hx Myringotomy, Hx Oral Surgery - plates in jaw, Hx Tonsillectomy - Immunizations Immunizations up to date: Yes Hx Diphtheria, Pertussis, Tetanus Vaccination: Yes - within 5 yrs Physical Exam - Vital signs Vitals: Temp Pulse Resp BP Pulse Ox 98.5 F 106 H 16 124/77 99 04/30/20 08:14 04/30/20 08:14 04/30/20 08:14 04/30/20 08:14 04/30/20 08:14 Course - Re-evaluation Re-evalutation: 04/30/20 10:23 On my review of the patient's x-ray she appears to have some increased bilateral markings in the lower lobes I believe this is most consistent with bronchitis likely related to both an upper respiratory infection and her smoking history. We will place her on Zithromax, Decadron, albuterol, follow-up PCP recommendation to stop smoking - Vital Signs Vital signs: Temp Pulse Resp BP Pulse Ox 98.5 F 106 H 16 124/77 99 04/30/20 08:14 04/30/20 08:14 04/30/20 08:14 04/30/20 08:14 04/30/20 08:14 - Laboratory Results Critical Laboratory Results Reviewed: No Critical Results - Radiology Results Critical Radiology Results Reviewed: No Critical Results Discharge - Discharge Clinical Impression: Bronchitis, acute, with bronchospasm, Tobacco abuse Condition: Stable Disposition: HOME, SELF-CARE Additional Instructions: 1. take the medications as prescribed 2. if you were prescribed an Albuterol inhaler, use it as instructed, 2 puffs every 4 hours as needed for cough/wheezing 3. call your primary care provider as soon as possible to schedule recheck appt. in the office. 4. return to the ED for any worsening condition, shortness of breath or continued fever that does not resolve with Motrin/Tylenol Prescriptions: Dexamethasone [Decadron 4 Mg Tablet] 4 mg PO DAILY #7 tablet Albuterol Sulfate [Proair HFA Inhalation Aerosol 8.5 gm MDI] 2 puff IH Q4H PRN #1 mdi PRN Reason: Azithromycin [Zithromax 250 mg Tablet] 250 mg PO ASDIR PRN #6 tablet PRN Reason: Referrals: LUCI BARRETT DO [NO LOCAL MD] - Follow up as needed
[2020-04-30 10:45] VITALS: BP 120/72
--- NOTE | 2020-04-30 11:09 | RADIOLOGY REPORT (SQ) ---
EXAM DESCRIPTION: CHEST SINGLE VIEW IMAGES COMPLETED DATE/TIME: 04/30/2020 10:23 am REASON FOR STUDY: cough COMPARISON: 05/27/2017 EXAM PARAMETERS: NUMBER OF VIEWS: One view. TECHNIQUE: Single frontal radiographic view of the chest acquired. RADIATION DOSE: NA LIMITATIONS: None. FINDINGS: LUNGS AND PLEURA: No opacities, masses or pneumothorax. No pleural effusion. MEDIASTINUM AND HILAR STRUCTURES: No masses. Contour normal. HEART AND VASCULAR STRUCTURES: Heart normal in size. Normal vasculature. BONES: No acute findings. HARDWARE: None in the chest. OTHER: No other significant finding. IMPRESSION: NO ACUTE RADIOGRAPHIC FINDING IN THE CHEST. TECHNICAL DOCUMENTATION: JOB ID: [id number] 2010 [employer]- All Rights Reserved Reading location - IP/workstation name: [email or web address]
== END 2020-04-30 10:44 | disposition home or self-care (01) ==
LOC: ER 08:11
DX: J20.9 Acute bronchitis, unspecified (principal); R09.81 Nasal congestion; R05 Cough; R06.02 Shortness of breath; F17.200 Nicotine dependence, unspecified, uncomplicated
CPT/HCPCS: 71045; 99283